=== PATIENT | male | born 1965 | race Caucasian/White ===

== ENCOUNTER 2020-05-21 20:48 | Inpatient (IN) ==
[2020-05-21] MEDS ORDERED: PROVENTIL NEB TX 0.083% 2.5MG/ 3ML NEB ONE (21:03)
[2020-05-21] MEDS ORDERED: DECADRON INJ PRESERVATIVE-FREE IVP ONE (21:03)
[2020-05-21] MEDS ORDERED: ZITHROMAX INJ 500 MG VIAL 500 MG in NS 250 ML IV 250 ML IV SCH (21:04)
[2020-05-21] MEDS ORDERED: PROVENTIL NEB TX 0.083% 2.5MG/ 3ML ONE (21:11)
[2020-05-21] MEDS ORDERED: DECADRON INJ ONE (21:19)
[2020-05-21] MEDS ORDERED: ZITHROMAX INJ 500 MG VIAL IV ONE (21:20)
[2020-05-21] MEDS ORDERED: NS 250 ML IV 250 ML IV ONE (21:20)
--- NOTE | 2020-05-21 21:29 | DR.SOBA ---
HPI Time Seen Time Seen by Provider: 05/21/20 21:02 Primary Care Physician Primary Care Physician: TOMASA HPI Comment HPI Comment: Patient presents with the complaint of sob. Recently dx with COVID 19 infection. notes that his O2 saturation decreases when he exerts himself. SOB is also worse with exertion. Complaints Chief Complaint:: PT STATES THAT HE STARTED GETTING SICK ON SATURDAY THE AND TESTED POSITIVE ON SATURDAY THE FOR COVID. STATES THAT HE IS JUST GETTING WORSE. STATES THAT AT HOME HIS O2 IS STAYING 88-90% AND WHEN HE TRIES TO WALK OR DO ANYTHING IT DROPS. ALSO HAS SOB ON EXERTION, SLIGHT COUGH, SLIGHT TEMP, GENERALIZED BODY ACHES, AND LOW BLOOD PRESSURE THAT IS CAUSING DIZZINESS AND WEAKNESS. COVID-19 Coronavirus risk:travel/contact w/high risk person: Yes Coronavirus symptoms experienced: Fever, Coughing and Shortness of Breath Source History Provided: Patient Mode of Arrival Mode of Arrival: Ambulatory Timing Onset of Chief Complaint: 05/14/20 PMH PMH Past Medical History: Yes Past Medical History: Diabetes, Hypertension and Renal Disease Past Surgical History: No Surgical History: No History Family History History of Family Medical Conditions: Yes Family Medical History: Hypertension Social History Does patient currently use any type of tobacco product: No Have you used tobacco products in the last 12 months: No Type of Tobacco Use: None Does any household member use tobacco: No Alcohol Use: None Do you use any recreational Drugs:: No Lives With: Spouse Lives Where: Home Travel Risk Coronavirus risk:travel/contact w/high risk person: Yes Coronavirus symptoms experienced: Fever, Coughing and Shortness of Breath Infectious screening In the last 2 months have you had wt loss of >10#?: NO Have you had fever, night sweats or hemotysis?: No Have you traveled outside the country in the last 6 months?: No Isolation: Droplet ROS Review of Systems Constitutional: See HPI Respiratoy: Dry Cough, Short of Breath and Wheezing Cardiovascular: Chest Pain All Other Systems: Reviewed and Negative PE Vital Signs Vitals: Temperature 99.6 F Pulse Rate 81 Respiratory Rate 24 Blood Pressure 74/43 O2 Sat by Pulse Oximetry 91 General Limitations: No Limitations Head Head Exam: Normal Inspection, Atraumatic and Normocephalic ENT ENT Exam: Normal Exam and Normal Oropharynx Neck Neck Exam: Normal Inspection and Full ROM Chest Chest Inspection: Normal Inspection and Symmetric Chest Wall Rise Respiratory Respiratory Exam: Bilateral: Wheezing and Bilateral: Rhonchi Cardiovascular Cardiovascular Exam: Regular Rate, Normal Rhythm and Normal Heart Sounds Abdominal Exam Abdominal Exam: Normal Inspection, Normal Bowel Sounds and Soft Extremities Extremities Exam: Normal Inspection Neurologic Neurological Exam: Alert and Oriented X3 Psychiatric Psychiatric Exam: Normal Affect and Normal Mood COURSE Treatment Treatment: Spoke with Dr. Greenwood who has agreed that the patient needs admission. ROR Labs Reviewed Result Diagrams: 05/21/20 21:16 05/21/20 21:16 Laboratory: WBC 5.8 X10^3/uL (3.6-10.0) 05/21/20 21:16 RBC 4.72 X10^6/uL (4.7-6.0) 05/21/20 21:16 Hgb 14.0 g/dL (13.5-18.0) 05/21/20 21:16 Hct 40.1 % (42.0-54.0) L 05/21/20 21:16 MCV 84.9 fL (80.0-100.0) 05/21/20 21:16 MCH 29.6 pg (27.0-34.0) 05/21/20 21:16 MCHC 34.8 g/dL (33.0-35.0) 05/21/20 21:16 RDW 13.9 % (11.6-16.5) 05/21/20 21:16 Plt Count 98 X10^3/uL (150.0-450.0) L 05/21/20 21:16 MPV 9.7 fL (7.4-11.0) 05/21/20 21:16 Neut % (Auto) 76.1 % (42.0-75.0) H 05/21/20 21:16 Lymph % (Auto) 15.6 % (21.0-51.0) L 05/21/20 21:16 [place] % (Auto) 8.1 % (0.0-13.0) 05/21/20 21:16 Eos % (Auto) 0.0 % (0.9-2.9) L 05/21/20 21:16 Baso % (Auto) 0.2 % (0.2-1.0) 05/21/20 21:16 Neut # (Auto) 4.4 x10^3/uL (2.2-4.8) 05/21/20 21:16 Lymph # (Auto) 0.9 X10^3/uL (1.3-2.9) L 05/21/20 21:16 [place] # (Auto) 0.5 x10^3/uL (0.3-0.8) 05/21/20 21:16 Eos # (Auto) 0.0 x10^3/uL (0.0-0.2) 05/21/20 21:16 Baso # (Auto) 0.0 X10^3/uL (0.0-0.1) 05/21/20 21:16 Absolute Nucleated RBC 0.1 /100WBC 05/21/20 21:16 D-Dimer 1.01 ug/ml (0.0-0.57) H* 05/21/20 21:16 Sodium 132 mmol/L (136-145) L 05/21/20 21:16 Corrected Sodium 136 mmol/L (136-145) 05/21/20 21:16 Potassium 3.5 mmol/L (3.5-5.1) 05/21/20 21:16 Chloride 98 mmol/L (98-107) 05/21/20 21:16 Carbon Dioxide 22.3 mmol/L (21-32) 05/21/20 21:16 BUN 71 mg/dL (7-18) H 05/21/20 21:16 Creatinine 3.18 mg/dL (0.70-1.30) H 05/21/20 21:16 Est GFR (MDRD) Af Amer 26 (>60) L 05/21/20 21:16 Est GFR (MDRD) Non-Af 22 (>60) L 05/21/20 21:16 Glucose 251 mg/dL (65-99) H 05/21/20 21:16 Lactic Acid 1.0 mmol/L (0.4-2.0) 05/21/20 21:16 Calcium 8.2 mg/dL (8.5-10.1) L 05/21/20 21:16 Corrected Calcium 9.1 mg/dL (8.5-10.1) 05/21/20 21:16 Ferritin 1593 ng/mL (26-388) H 05/21/20 21:16 Total Bilirubin 0.70 mg/dL (0.2-1.0) 05/21/20 21:16 AST 97 Units/L (15-37) H 05/21/20 21:16 ALT 64 Units/L (12-78) 05/21/20 21:16 Alkaline Phosphatase 59 Units/L (46-116) 05/21/20 21:16 Troponin I 0.06 ng/mL (0-1.5) 05/21/20 21:16 C-Reactive Protein 164.30 mg/L (0-3.0) H 05/21/20 21:16 Total Protein 6.3 g/dL (6.4-8.2) L 05/21/20 21:16 Albumin 2.9 g/dL (3.4-5.0) L 05/21/20 21:16 Globulin 3.4 g/dL (2.5-4.5) 05/21/20 21:16 Albumin/Globulin Ratio 0.9 Ratio (1.1-2.1) L 05/21/20 21:16 Other Results Comments: STUDY: CHEST, 1 VIEW COMPARISON: None HISTORY: PT STATES THAT HE STARTED GETTING SICK ON SATURDAY THE AND TESTED POSITIVE ON SATURDAY THE FOR COVID. STATES THAT HE IS JUST GETTING WORSE. STATES THAT AT HOME HIS O2 IS STAYING 88-90% AND WHEN HE TRIES TO WALK OR DO ANYTHING IT TRUNCATED ... FINDINGS: Left lower lobe consolidation is seen with air bronchograms. There is discoid atelectasis of the right lower lobe. Questionable scattered areas of rounded like airspace disease is seen in the right mid and right upper lung zone. No pleural effusion or gross pneumothorax is seen. Heart size is magnified on this portable technique with elevation of the right hemidiaphragm. IMPRESSION: Left lower lobe consolidation is seen. Given the patient's history of being positive for COVID-19, this is worrisome for infectious process. Electronically signed by: Neymar Ford (May 21, 2020 22:33:10) Opioid Opioid Risk Tool Age (Breezy box if 16-45): No History of Preadolescent Sexual Abuse: No Total: 0 Total Score Risk Category: Low Risk Copyright: [employer]varez predicting aberrant behaviors
[2020-05-21] MEDS ORDERED: NS 1000 ML 1,000 ML ONE ×3 (21:35→23:57)
[2020-05-21] MEDS ORDERED: NS 1000 ML 1,000 ML IV ONE ×2 (21:37→23:00)
[2020-05-21 21:48] LABS: BASOPHILS % (AUTO) 0.2 % (0.2-1.0); HEMATOCRIT 40.1 % (42.0-54.0); LYMPHOCYTES # (AUTO) 0.9 X10^3/uL (1.3-2.9); LYMPHOCYTES % (AUTO) 15.6 % (21.0-51.0); MEAN CORPUSCULAR HEMOGLOBIN 29.6 pg (27.0-34.0); MEAN CORPUSCULAR HGB CONC 34.8 g/dL (33.0-35.0); MEAN CORPUSCULAR VOLUME 84.9 fL (80.0-100.0); MEAN PLATELET VOLUME 9.7 fL (7.4-11.0); MONOCYTES # (AUTO) 0.5 x10^3/uL (0.3-0.8); MONOCYTES % (AUTO) 8.1 % (0.0-13.0); NEUTROPHILS # (AUTO) 4.4 x10^3/uL (2.2-4.8); NEUTROPHILS % (AUTO) 76.1 % (42.0-75.0); PLATELET COUNT 98 X10^3/uL (150.0-450.0); RED BLOOD COUNT 4.72 X10^6/uL (4.7-6.0); RED CELL DISTRIBUTION WIDTH 13.9 % (11.6-16.5); WHITE BLOOD COUNT 5.8 X10^3/uL (3.6-10.0)
[2020-05-21 21:58] LABS: ALBUMIN 2.9 g/dL (3.4-5.0); CALCIUM 8.2 mg/dL (8.5-10.1); CARBON DIOXIDE 22.3 mmol/L (21-32); COR CA(FOR HYPOALB) 9.1 mg/dL (8.5-10.1); CREATININE 3.18 mg/dL (0.70-1.30); TOTAL PROTEIN 6.3 g/dL (6.4-8.2)
--- NOTE | 2020-05-21 22:34 | RAD ---
STUDY: CHEST, 1 VIEWCOMPARISON: NoneHISTORY: PT STATES THAT HE STARTED GETTING SICK ON SATURDAY THE AND TESTED POSITIVE ON SATURDAY THE FOR COVID. STATES THAT HE IS JUST GETTING WORSE. STATES THAT AT HOME HIS O2 IS STAYING 88-90% AND WHEN HE TRIES TO WALK OR DO ANYTHING IT TRUNCATED ...FINDINGS:Left lower lobe consolidation is seen with air bronchograms. There is discoid atelectasis of the right lower lobe. Questionable scattered areas of rounded like airspace disease is seen in the right mid and right upper lung zone. No pleural effusion or gross pneumothorax is seen. Heart size is magnified on this portable technique with elevation of the right hemidiaphragm.IMPRESSION:Left lower lobe consolidation is seen. Given the patient's history of being positive for COVID-19, this is worrisome for infectious process.Electronically signed by: Neymar Ford (May 21, 2020 22:33:10)
[2020-05-21] MEDS ORDERED: D5W 250 ML IV 250 ML IV ONE (22:39)
[2020-05-21] MEDS ORDERED: LEVOPHED INJ ONE (22:39)
[2020-05-21] MEDS: LEVOPHED INJ 8 MG in D5W 250 ML IV 242 ML IV PRN (23:01)
[2020-05-21] MEDS ORDERED: VANCOMYCIN IV *PREMIX 1 G/200 ML BAG 1 G/200 ML PIGGYBACK IV SCH (23:11)
[2020-05-21] MEDS ORDERED: ZITHROMAX INJ 500 MG VIAL 500 MG in D5W 250 ML IV 250 ML IV SCH (23:12)
[2020-05-21 23:43] LABS: ABG HCO3 18.8 mmol/L (22-26)
[2020-05-21 23:44] LABS: ABG ALLEN TEST POS
[2020-05-21] MEDS: NS 1000 ML 1,000 ML IV SCH (23:57)
[2020-05-22] MEDS ORDERED: VANCOMYCIN HCL ONE (00:15)
[2020-05-22] MEDS ORDERED: NS 250 ML IV 250 ML IV ONE (00:15)
[2020-05-22 01:44] VITALS: BMI 40.5
[2020-05-22 05:23] LABS: BASOPHILS % (AUTO) 0.3 % (0.2-1.0); EOSINOPHILS % (AUTO) 0.1 % (0.9-2.9); HEMATOCRIT 42.1 % (42.0-54.0); HEMOGLOBIN 14.7 g/dL (13.5-18.0); LYMPHOCYTES # (AUTO) 0.9 X10^3/uL (1.3-2.9); LYMPHOCYTES % (AUTO) 13.5 % (21.0-51.0); MEAN CORPUSCULAR HEMOGLOBIN 29.7 pg (27.0-34.0); MEAN CORPUSCULAR HGB CONC 34.8 g/dL (33.0-35.0); MEAN CORPUSCULAR VOLUME 85.3 fL (80.0-100.0); MEAN PLATELET VOLUME 9.4 fL (7.4-11.0); MONOCYTES # (AUTO) 0.1 x10^3/uL (0.3-0.8); MONOCYTES % (AUTO) 2.1 % (0.0-13.0); NEUTROPHILS # (AUTO) 5.3 x10^3/uL (2.2-4.8); PLATELET COUNT 105 X10^3/uL (150.0-450.0); RED BLOOD COUNT 4.94 X10^6/uL (4.7-6.0); RED CELL DISTRIBUTION WIDTH 14.2 % (11.6-16.5); WHITE BLOOD COUNT 6.4 X10^3/uL (3.6-10.0)
[2020-05-22 05:34] LABS: ALBUMIN 2.8 g/dL (3.4-5.0); CALCIUM 7.9 mg/dL (8.5-10.1); CARBON DIOXIDE 17.8 mmol/L (21-32); COR CA(FOR HYPOALB) 8.9 mg/dL (8.5-10.1); CREATININE 2.86 mg/dL (0.70-1.30); TOTAL PROTEIN 6.3 g/dL (6.4-8.2)
[2020-05-22] MEDS ORDERED: DUONEB 0.5 MG/3 MG (3 mL) NEB ONE (07:44)
[2020-05-22] MEDS ORDERED: PULMICORT NEB TX 0.5 MG NEB ONE (07:45)
[2020-05-22] MEDS: DUONEB 0.5 MG/3 MG (3 mL) NEB SCH ×4 (08:25→21:35)
[2020-05-22] MEDS: PULMICORT NEB TX 0.5 MG NEB SCH ×2 (08:25→21:35)
[2020-05-22] MEDS: NS 1000 ML 1,000 ML IV SCH ×2 (08:46→17:56)
[2020-05-22] MEDS: LEVOPHED INJ 8 MG in D5W 250 ML IV 242 ML IV PRN ×2 (08:49→17:07)
[2020-05-22] MEDS ORDERED: REMDESIVIR (INVESTIGATIONAL DRUG GS-5734) 200 MG in NS 250 ML IV 250 ML IV SCH (08:58)
[2020-05-22] MEDS ORDERED: DECADRON TAB PO SCH (09:00)
[2020-05-22] MEDS ORDERED: VITAMIN C PO SCH (09:00)
[2020-05-22] MEDS: ZOSYN VIAL 3.375 GRAMS 3.375 G in NS 100 ML IV + SPIKE MINIBAG* 100 ML IV SCH ×3 (09:38→22:40)
[2020-05-22] MEDS: ZINC SULFATE PO SCH (09:40)
[2020-05-22] MEDS: VITAMIN D (1.25MG) PO SCH (09:41)
[2020-05-22] MEDS: ASCORBIC ACID INJ MULTI-DOSE VIAL 1,500 MG in NS 100 ML IV 100 ML IV SCH ×3 (09:41→20:45)
[2020-05-22] MEDS: VITAMIN A PO SCH (09:43)
[2020-05-22] MEDS: SOLU-Cortef INJ IVP SCH ×2 (09:47→20:45)
[2020-05-22] MEDS ORDERED: HEPARIN SODIUM INJ 5000 UNITS IVP ONE (10:25)
--- NOTE | 2020-05-22 11:18 | DR.H&P ---
H&P History & Physical for Day of: H&P Date: 05/22/20 Chief Complaint Chief Complaint: worsening SOB Allergies Allergies Allergy/AdvReac Type Severity Reaction Status Date / Time No Known Drug Allergies Allergy Verified 05/21/20 21:13 History of Present Illness History of Present Illness: Mr. Cotto is a 54y/o male with a PMH of HTN, CHF, DM and obesity presented with worsening SOB. He has been having cough, SOB, fever and chills for the past week. He was tested on Saturday05/16/20 for COVID and had a positive result. He states his SOB has been worsening over the week and has been having fever, Tmax 101. He denies N/V/D or abdominal pain. Denies chest pain. He does not use O2 at home. He is currently on h-flow oxygen and reports feeling a lot better. He reports hx of CHF, has - CXR concerning for LLL pneumonia - Patient was noted to be hypotensive, received 2L bolus with minimal improvement in BP so as started on Levophed drip, currently at 20 mcg. - Labs: WBC: 6.4 Plt: 105 BUN/Cr: 70/2.86 ( improved from 3.18). D-dimer: 1.01 - CRP: 164 Trop 0.06 AB.35/34/52/18 with sats 84% He received a dose of decadron and azithromycin. Plan: add Zosyn, continue Azithromax, add hydrocortisone 50 mg BID for hypotension, wean Levophed to keep MAP > 65. Start Remdesivir. Due to elevated d-dimer and unable to do CT due to ELIANE, will start heparin drip as per PE protocol. Discussed with patient, denies hx of bleeding. Will decrease IVF to 100cc/hr due to hx of CHF and unknown EF along with crackles heard on exam. ECHO ordered for tomorrow. Monitor AM labs, trend one more troponin. Repeat CXR in the morning. Wean O2 as tolerated. Discussed patient's treatment plan with patient and at bedside. Patient's nurse also updated on the changes. Patient remains in a critical state due to hemodynamic instability. Critical care time spent 30-74 mins in clinical assessment, reviewing labs and imaging and decision making. Past Medical History Past Medical History: Diabetes, Hypertension and Renal Disease Additional Medical History: CHF Obesity Past Surgical History Surgical History: No History Family History Family Medical History: Diabetes Mellitus, Cancer and Hypertension Social History Does patient currently use any type of tobacco product: No Have you used tobacco products in the last 12 months: No Type of Tobacco Use: None Does any household member use tobacco: No Alcohol Use: None Drug Use: None Prescription drug monitoring program results: PDMP reviewed and no concerns identified Medications Home Medications: No Known Drug Allergies Allergy (Verified 05/21/20 21:13) CONTINUE taking the following medications carvedilol 25 mg PO BID 05/21/20 [History] dapagliflozin [Farxiga] 10 mg PO QAM 05/21/20 [History] ergocalciferol (vitamin D2) [Vitamin D2] 1,250 mcg PO QWEEK 05/21/20 [History] hydrochlorothiazide 25 mg PO QAM 05/21/20 [History] lisinopril 20 mg PO DAILY 05/21/20 [History] minoxidil 2.5 mg PO BID 05/21/20 [History] bajapovj-fjd-NP-lycopen-lutein [Centrum Silver Men] 1 tab PO DAILY 05/21/20 [History] Labs Result Diagrams: 05/22/20 04:30 05/22/20 04:30 Labs: Laboratory WBC 6.4 X10^3/uL (3.6-10.0) 05/22/20 04:30 RBC 4.94 X10^6/uL (4.7-6.0) 05/22/20 04:30 Hgb 14.7 g/dL (13.5-18.0) 05/22/20 04:30 Hct 42.1 % (42.0-54.0) 05/22/20 04:30 MCV 85.3 fL (80.0-100.0) 05/22/20 04:30 MCH 29.7 pg (27.0-34.0) 05/22/20 04:30 MCHC 34.8 g/dL (33.0-35.0) 05/22/20 04:30 RDW 14.2 % (11.6-16.5) 05/22/20 04:30 Plt Count 105 X10^3/uL (150.0-450.0) L 05/22/20 04:30 MPV 9.4 fL (7.4-11.0) 05/22/20 04:30 Neut % (Auto) 84.0 % (42.0-75.0) H 05/22/20 04:30 Lymph % (Auto) 13.5 % (21.0-51.0) L 05/22/20 04:30 [place] % (Auto) 2.1 % (0.0-13.0) 05/22/20 04:30 Eos % (Auto) 0.1 % (0.9-2.9) L 05/22/20 04:30 Baso % (Auto) 0.3 % (0.2-1.0) 05/22/20 04:30 Neut # (Auto) 5.3 x10^3/uL (2.2-4.8) H 05/22/20 04:30 Lymph # (Auto) 0.9 X10^3/uL (1.3-2.9) L 05/22/20 04:30 [place] # (Auto) 0.1 x10^3/uL (0.3-0.8) L 05/22/20 04:30 Eos # (Auto) 0.0 x10^3/uL (0.0-0.2) 05/22/20 04:30 Baso # (Auto) 0.0 X10^3/uL (0.0-0.1) 05/22/20 04:30 Absolute Nucleated RBC 0.1 /100WBC 05/22/20 04:30 PT 13.9 SECONDS (11.8-14.3) 05/22/20 10:30 INR Target Range - 05/22/20 10:30 INR 1.11 (0.8-1.3) 05/22/20 10:30 APTT 41.3 SECONDS (22.9-36.5) H 05/22/20 10:30 PTT Comment - 05/22/20 10:30 D-Dimer 1.01 ug/ml (0.0-0.57) H* 05/21/20 21:16 Sample Site Rr 05/21/20 22:59 ABG pH 7.350 (7.35-7.45) 05/21/20 22:59 ABG pCO2 34.0 mmHg (35.0-45.0) L 05/21/20 22:59 ABG pO2 52.0 mmHg (80.0-100.0) L 05/21/20 22:59 ABG HCO3 18.8 mmol/L (22-26) L 05/21/20 22:59 ABG O2 Saturation 84.0 % (90-100) L* 05/21/20 22:59 ABG Base Excess -6.0 mmol/L (-2.0-2.0) L 05/21/20 22:59 Venancio Test Pos 05/21/20 22:59 A-a Gradient 55.0 mmHg 05/21/20 22:59 FiO2 21.0 05/21/20 22:59 Blood Gas Comments Darin well sw 05/21/20 22:59 Sodium 133 mmol/L (136-145) L 05/22/20 04:30 Corrected Sodium 139 mmol/L (136-145) 05/22/20 04:30 Potassium 3.9 mmol/L (3.5-5.1) 05/22/20 04:30 Chloride 100 mmol/L (98-107) 05/22/20 04:30 Carbon Dioxide 17.8 mmol/L (21-32) L 05/22/20 04:30 BUN 70 mg/dL (7-18) H 05/22/20 04:30 Creatinine 2.86 mg/dL (0.70-1.30) H 05/22/20 04:30 Est GFR (MDRD) Af Amer 30 (>60) L 05/22/20 04:30 Est GFR (MDRD) Non-Af 25 (>60) L 05/22/20 04:30 Glucose 355 mg/dL (65-99) H 05/22/20 04:30 Lactic Acid 1.0 mmol/L (0.4-2.0) 05/21/20 21:16 Calcium 7.9 mg/dL (8.5-10.1) L 05/22/20 04:30 Corrected Calcium 8.9 mg/dL (8.5-10.1) 05/22/20 04:30 Ferritin 1593 ng/mL (26-388) H 05/21/20 21:16 Total Bilirubin 0.90 mg/dL (0.2-1.0) 05/22/20 04:30 AST 97 Units/L (15-37) H 05/22/20 04:30 ALT 65 Units/L (12-78) 05/22/20 04:30 Alkaline Phosphatase 61 Units/L (46-116) 05/22/20 04:30 Troponin I 0.06 ng/mL (0-1.5) 05/21/20 21:16 C-Reactive Protein 164.30 mg/L (0-3.0) H 05/21/20 21:16 Total Protein 6.3 g/dL (6.4-8.2) L 05/22/20 04:30 Albumin 2.8 g/dL (3.4-5.0) L 05/22/20 04:30 Globulin 3.5 g/dL (2.5-4.5) 05/22/20 04:30 Albumin/Globulin Ratio 0.8 Ratio (1.1-2.1) L 05/22/20 04:30 Review of Systems Constitutional: Fever, Weakness and Malaise Eyes: Vision Change ENT: Nose Congestion Respiratory: Cough, Shortness of Breath and SOB with Excertion Cardiovascular: No Symptoms Reported Gastrointestinal: Vomiting, Abdominal Pain and Diarrhea Genitourinary: No Symptoms Reported Musculoskeletal: No Symptoms Reported Skin: No Symptoms Reported Neurological: No Symptoms Reported Physical Exam Vital Signs: Temperature 97.5 F Pulse Rate [Left] 69 Pulse Rate 75 Respiratory Rate 32 Blood Pressure [Left Arm] 81/47 Blood Pressure 102/72 O2 Sat by Pulse Oximetry 92 Oriented: Normal Eyes: Normal Ear: Normal Throat: Normal Respiratory: Diminished Throughout, RLL Rales and LLL Rales Cardiovascular: Normal and Edema (slight LE edema b/l ) Auscultation: Bowel Sounds: Normal Palpation: Normal Tenderness: Normal Skin: Normal Musculoskeletal: Normal Mood Description: Calm Affect: Normal Speech Pattern: Clear and Appropriate Assessment/Plan (1) Acute respiratory failure due to COVID-19: Status: Acute (2) Left lower lobe pneumonia: Status: Acute (3) Shock due to systemic infection: Status: Acute (4) Acute renal failure: Status: Acute (5) Elevated d-dimer: Status: Acute (6) Thrombocytopenia: Status: Acute (7) CHF (congestive heart failure): Status: Acute (8) Diabetes: Status: Acute Review H&P Reviewed: Yes Patient was examined?: Yes
[2020-05-22] MEDS: HEPARIN SODIUM IN D5W 25,000 UNITS/500 ML BAG IV PRN ×2 (11:19→18:30)
[2020-05-22] MEDS: HumuLIN R SC PRN ×4 (11:43→23:25)
[2020-05-22] MEDS: ZITHROMAX TAB 250 MG PO SCH (11:44)
[2020-05-22] MEDS ORDERED: TYLENOL 325 MG TAB PO PRN (19:45)
[2020-05-22] MEDS ORDERED: ZITHROMAX INJ 500 MG VIAL 500 MG in D5W 250 ML IV 250 ML IV SCH (21:00)
[2020-05-23] MEDS: NS 1000 ML 1,000 ML IV SCH ×5 (00:15→22:14)
[2020-05-23] MEDS: ASCORBIC ACID INJ MULTI-DOSE VIAL 1,500 MG in NS 100 ML IV 100 ML IV SCH ×4 (03:57→20:40)
--- NOTE | 2020-05-23 04:35 | RAD ---
STUDY: CHEST, 1 VIEWCOMPARISON: NoneHISTORY: COVID19, SOBFINDINGS:Persistent elevation the right hemidiaphragm is seen with airspace disease in the right lower and left lower lung zone. Heart size is magnified on this portable technique but stable from prior exam. No pleural effusion or pneumothorax is seen.IMPRESSION:No significant change from prior studyElectronically signed by: Neymar Ford (May 23, 2020 04:34:37)
[2020-05-23 04:54] LABS: BASOPHILS % (AUTO) 0.4 % (0.2-1.0); HEMATOCRIT 43.1 % (42.0-54.0); HEMOGLOBIN 14.7 g/dL (13.5-18.0); LYMPHOCYTES # (AUTO) 0.6 X10^3/uL (1.3-2.9); LYMPHOCYTES % (AUTO) 5.9 % (21.0-51.0); MEAN CORPUSCULAR HEMOGLOBIN 29.5 pg (27.0-34.0); MEAN CORPUSCULAR HGB CONC 34.1 g/dL (33.0-35.0); MEAN CORPUSCULAR VOLUME 86.6 fL (80.0-100.0); MEAN PLATELET VOLUME 9.2 fL (7.4-11.0); MONOCYTES # (AUTO) 0.7 x10^3/uL (0.3-0.8); MONOCYTES % (AUTO) 6.8 % (0.0-13.0); NEUTROPHILS # (AUTO) 8.8 x10^3/uL (2.2-4.8); NEUTROPHILS % (AUTO) 86.9 % (42.0-75.0); PLATELET COUNT 142 X10^3/uL (150.0-450.0); RED BLOOD COUNT 4.98 X10^6/uL (4.7-6.0); RED CELL DISTRIBUTION WIDTH 14.1 % (11.6-16.5); WHITE BLOOD COUNT 10.1 X10^3/uL (3.6-10.0)
[2020-05-23 04:57] LABS: CALCIUM 7.7 mg/dL (8.5-10.1); CARBON DIOXIDE 18.4 mmol/L (21-32); CREATININE 2.57 mg/dL (0.70-1.30)
[2020-05-23] MEDS: ZOSYN VIAL 3.375 GRAMS 3.375 G in NS 100 ML IV + SPIKE MINIBAG* 100 ML IV SCH ×3 (05:55→23:00)
[2020-05-23] MEDS: HumuLIN R SC PRN ×4 (06:20→20:40)
[2020-05-23] MEDS: HEPARIN SODIUM IN D5W 25,000 UNITS/500 ML BAG IV PRN (06:21)
[2020-05-23] MEDS: VITAMIN A PO SCH (08:39)
[2020-05-23] MEDS: ZITHROMAX TAB 250 MG PO SCH (08:40)
[2020-05-23] MEDS: ZINC SULFATE PO SCH (08:40)
[2020-05-23] MEDS: VITAMIN D (1.25MG) PO SCH (08:40)
[2020-05-23] MEDS: REMDESIVIR (INVESTIGATIONAL DRUG GS-5734) 100 MG in NS 250 ML IV 250 ML IV SCH (08:42)
[2020-05-23] MEDS ORDERED: LANTUS SC SCH (09:00)
[2020-05-23] MEDS ORDERED: SOLU-Medrol 40 MG VIAL IVP SCH (09:00)
[2020-05-23] MEDS: PULMICORT NEB TX 0.5 MG NEB SCH ×2 (09:10→21:50)
[2020-05-23] MEDS: DUONEB 0.5 MG/3 MG (3 mL) NEB SCH ×4 (09:10→21:50)
--- NOTE | 2020-05-23 09:22 | PCM.PROG ---
Progress Note Progress Note for Day of Date of Exam: 05/23/20 Subjective Subjective: Patient seen at bedside, patient FSBG was elevated during the night requiring multiple doses of regular insulin. He states he feels a lot better. He reports improvement in his breathing. He is currently on HHF @ 68%. He has been afebrile, tolerating diet. His BP is better, currently on Levophed 8mcg. Labs: WBC-10.1 Plt: 142 K: 3.5 BUN/Cr: 67/2.57 ( baseline around 1.5-1.6). CXR: similar to prev one, no significant change Plan: echo pending, add Lantus 15 units QAM, patient reports taking Tresiba at home 40 units qHS and Ozempic. Continue hydration with IVF, continue IV abx, Remdesivir and steroids. Continue to wean down Levophed, keep MAP > 65. Follow cultures and AM labs. Check A1C. Wean O2 to keep sats > 92%. Past Medical Family Social History Past Med/Fam/Surg Hx: No changes since H&P Allergies: Allergies No Known Drug Allergies Allergy (Verified 05/21/20 21:13) Review of Systems ROS: No change since H&P Vital Signs and I&O's Vital Signs: Temperature 99.5 F Pulse Rate [Left] 69 Pulse Rate 73 Respiratory Rate 9 Blood Pressure [Left Arm] 81/47 Blood Pressure 105/59 O2 Sat by Pulse Oximetry 92 Intake and Output: Intake & Output 05/20/20 05/21/20 05/22/20 05/23/20 23:59 23:59 23:59 23:59 Intake Total 9.7 / 9.7 4815 / 4815 1518 / 1518 Output Total 4050 / 4050 850 / 850 Balance 9.7 / 9.7 765 / 765 668 / 668 Physical Exam Oriented: Normal Eyes: Normal Ear: Normal Throat: Normal Respiratory: Generalized and Diminished Cardiovascular: Normal and Edema (slight LE edema b/l ) Auscultation: Bowel Sounds: Normal Tenderness: Normal Skin: Normal Musculoskeletal: Normal Mood Description: Calm Affect: Normal Speech Pattern: Clear and Appropriate Laboratory and Diagnostics Result Diagrams: 05/23/20 04:30 05/23/20 04:30 Labs: Laboratory WBC 10.1 X10^3/uL (3.6-10.0) H 05/23/20 04:30 RBC 4.98 X10^6/uL (4.7-6.0) 05/23/20 04:30 Hgb 14.7 g/dL (13.5-18.0) 05/23/20 04:30 Hct 43.1 % (42.0-54.0) 05/23/20 04:30 MCV 86.6 fL (80.0-100.0) 05/23/20 04:30 MCH 29.5 pg (27.0-34.0) 05/23/20 04:30 MCHC 34.1 g/dL (33.0-35.0) 05/23/20 04:30 RDW 14.1 % (11.6-16.5) 05/23/20 04:30 Plt Count 142 X10^3/uL (150.0-450.0) L 05/23/20 04:30 MPV 9.2 fL (7.4-11.0) 05/23/20 04:30 Neut % (Auto) 86.9 % (42.0-75.0) H 05/23/20 04:30 Lymph % (Auto) 5.9 % (21.0-51.0) L 05/23/20 04:30 [place] % (Auto) 6.8 % (0.0-13.0) 05/23/20 04:30 Eos % (Auto) 0.0 % (0.9-2.9) L 05/23/20 04:30 Baso % (Auto) 0.4 % (0.2-1.0) 05/23/20 04:30 Neut # (Auto) 8.8 x10^3/uL (2.2-4.8) H 05/23/20 04:30 Lymph # (Auto) 0.6 X10^3/uL (1.3-2.9) L 05/23/20 04:30 [place] # (Auto) 0.7 x10^3/uL (0.3-0.8) 05/23/20 04:30 Eos # (Auto) 0.0 x10^3/uL (0.0-0.2) 05/23/20 04:30 Baso # (Auto) 0.0 X10^3/uL (0.0-0.1) 05/23/20 04:30 Absolute Nucleated RBC 0.1 /100WBC 05/23/20 04:30 PT 13.9 SECONDS (11.8-14.3) 05/22/20 10:30 INR Target Range - 05/22/20 10:30 INR 1.11 (0.8-1.3) 05/22/20 10:30 APTT 89.0 SECONDS (22.9-36.5) H 05/23/20 04:30 PTT Comment - 05/23/20 04:30 D-Dimer 1.01 ug/ml (0.0-0.57) H* 05/21/20 21:16 Sample Site Rr 05/21/20 22:59 ABG pH 7.350 (7.35-7.45) 05/21/20 22:59 ABG pCO2 34.0 mmHg (35.0-45.0) L 05/21/20 22:59 ABG pO2 52.0 mmHg (80.0-100.0) L 05/21/20 22:59 ABG HCO3 18.8 mmol/L (22-26) L 05/21/20 22:59 ABG O2 Saturation 84.0 % (90-100) L* 05/21/20 22:59 ABG Base Excess -6.0 mmol/L (-2.0-2.0) L 05/21/20 22:59 Venancio Test Pos 05/21/20 22:59 A-a Gradient 55.0 mmHg 05/21/20 22:59 FiO2 21.0 05/21/20 22:59 Blood Gas Comments Darin well sw 05/21/20 22:59 Sodium 137 mmol/L (136-145) 05/23/20 04:30 Corrected Sodium 144 mmol/L (136-145) 05/23/20 04:30 Potassium 3.5 mmol/L (3.5-5.1) 05/23/20 04:30 Chloride 104 mmol/L (98-107) 05/23/20 04:30 Carbon Dioxide 18.4 mmol/L (21-32) L 05/23/20 04:30 BUN 67 mg/dL (7-18) H 05/23/20 04:30 Creatinine 2.57 mg/dL (0.70-1.30) H 05/23/20 04:30 Est GFR (MDRD) Af Amer 34 (>60) L 05/23/20 04:30 Est GFR (MDRD) Non-Af 28 (>60) L 05/23/20 04:30 Glucose 384 mg/dL (65-99) H 05/23/20 04:30 POC Glucose (mg/dL) 332 mg/dL (65-99) H 05/23/20 05:42 Hemoglobin A1c 8.5 % 05/23/20 04:30 Lactic Acid 1.0 mmol/L (0.4-2.0) 05/21/20 21:16 Calcium 7.7 mg/dL (8.5-10.1) L 05/23/20 04:30 Corrected Calcium 8.9 mg/dL (8.5-10.1) 05/22/20 04:30 Ferritin 1593 ng/mL (26-388) H 05/21/20 21:16 Total Bilirubin 0.90 mg/dL (0.2-1.0) 05/22/20 04:30 AST 97 Units/L (15-37) H 05/22/20 04:30 ALT 65 Units/L (12-78) 05/22/20 04:30 Alkaline Phosphatase 61 Units/L (46-116) 05/22/20 04:30 Troponin I 0.04 ng/mL (0-1.5) 05/22/20 04:30 C-Reactive Protein 110.20 mg/L (0-3.0) H 05/23/20 04:30 B-Natriuretic Peptide 85.9 pg/mL (0-79) H 05/22/20 04:30 Total Protein 6.3 g/dL (6.4-8.2) L 05/22/20 04:30 Albumin 2.8 g/dL (3.4-5.0) L 05/22/20 04:30 Globulin 3.5 g/dL (2.5-4.5) 05/22/20 04:30 Albumin/Globulin Ratio 0.8 Ratio (1.1-2.1) L 05/22/20 04:30 Plan (1) Acute respiratory failure due to COVID-19: Status: Acute (2) Left lower lobe pneumonia: Status: Acute (3) Shock due to systemic infection: Status: Acute (4) Elevated d-dimer: Status: Acute (5) Acute on chronic renal failure: Status: Acute (6) Thrombocytopenia: Status: Acute (7) CHF (congestive heart failure): Status: Acute (8) Diabetes: Status: Acute
[2020-05-23] MEDS: LEVOPHED INJ 8 MG in D5W 250 ML IV 242 ML IV PRN (11:40)
[2020-05-23] MEDS: SNACK - Diabetic Appropriate PO SCH (20:00)
[2020-05-23] MEDS ORDERED: SOLU-Cortef INJ IVP SCH (21:00)
[2020-05-24 03:26] LABS: BASOPHILS % (AUTO) 0.1 % (0.2-1.0); HEMATOCRIT 41.3 % (42.0-54.0); HEMOGLOBIN 14.1 g/dL (13.5-18.0); LYMPHOCYTES # (AUTO) 0.4 X10^3/uL (1.3-2.9); LYMPHOCYTES % (AUTO) 4.8 % (21.0-51.0); MEAN CORPUSCULAR HEMOGLOBIN 29.6 pg (27.0-34.0); MEAN CORPUSCULAR HGB CONC 34.2 g/dL (33.0-35.0); MEAN CORPUSCULAR VOLUME 86.3 fL (80.0-100.0); MEAN PLATELET VOLUME 8.9 fL (7.4-11.0); MONOCYTES # (AUTO) 0.6 x10^3/uL (0.3-0.8); MONOCYTES % (AUTO) 6.4 % (0.0-13.0); NEUTROPHILS # (AUTO) 7.8 x10^3/uL (2.2-4.8); NEUTROPHILS % (AUTO) 88.7 % (42.0-75.0); PLATELET COUNT 154 X10^3/uL (150.0-450.0); RED BLOOD COUNT 4.79 X10^6/uL (4.7-6.0); WHITE BLOOD COUNT 8.9 X10^3/uL (3.6-10.0)
[2020-05-24 03:28] LABS: CALCIUM 7.6 mg/dL (8.5-10.1); CARBON DIOXIDE 16.9 mmol/L (21-32); CREATININE 2.46 mg/dL (0.70-1.30)
[2020-05-24] MEDS: ASCORBIC ACID INJ MULTI-DOSE VIAL 1,500 MG in NS 100 ML IV 100 ML IV SCH ×4 (03:45→20:14)
[2020-05-24] MEDS: NS 1000 ML 1,000 ML IV SCH ×3 (06:15→21:33)
[2020-05-24] MEDS: HumuLIN R SC PRN ×4 (06:16→21:33)
[2020-05-24] MEDS: ZOSYN VIAL 3.375 GRAMS 3.375 G in NS 100 ML IV + SPIKE MINIBAG* 100 ML IV SCH ×3 (06:16→21:32)
[2020-05-24 06:45] LABS: ABG BASE EXCESS -5.5 mmol/L (-2.0-2.0); ABG HCO3 19.2 mmol/L (22-26)
[2020-05-24 06:46] LABS: ABG ALLEN TEST POS
[2020-05-24] MEDS: HEPARIN SODIUM IN D5W 25,000 UNITS/500 ML BAG IV PRN ×2 (07:03→16:10)
[2020-05-24] MEDS ORDERED: ZOFRAN INJ 4 MG VIAL IVP PRN (08:17)
[2020-05-24] MEDS ORDERED: TUSSIONEX PENNKINETIC SUSP PO PRN (08:20)
[2020-05-24] MEDS: LANTUS SC SCH (08:21)
[2020-05-24] MEDS: REMDESIVIR (INVESTIGATIONAL DRUG GS-5734) 100 MG in NS 250 ML IV 250 ML IV SCH (08:22)
[2020-05-24] MEDS: ZINC SULFATE PO SCH (08:23)
[2020-05-24] MEDS: VITAMIN A PO SCH (08:23)
[2020-05-24] MEDS: ZITHROMAX TAB 250 MG PO SCH (08:24)
[2020-05-24] MEDS ORDERED: DECADRON TAB ONE (08:26)
[2020-05-24] MEDS ORDERED: DECADRON TAB PO SCH (09:00)
[2020-05-24 09:07] LABS: ALBUMIN 2.6 g/dL (3.4-5.0); BILIRUBIN,DIRECT 0.2 mg/dL (0-0.2); TOTAL PROTEIN 6.1 g/dL (6.4-8.2)
--- NOTE | 2020-05-24 09:20 | PCM.PROG ---
Progress Note Progress Note for Day of Date of Exam: 05/24/20 Subjective Subjective: Patient seen at bedside, overnight patient was noted to have low sats so his HHFNC was increased to 74%. Patient states he does not feel well today. He has been having diarrhea since yesterday evening, 2 loose stools today so far. He reports nausea, no vomiting but reports does not want to eat. He also reports abdominal discomfort. He has mild cough. Denies fever or chills. Patient has been off Levophed since yesterday afternoon. Labs: WBC-8.9 Plt: 154 K: 3.5 BUN/Cr: 52/2.46 ( baseline around 1.5-1.6) CO2: 16.9 ECHO (05/24/20): EF 57%, Grade 1 DD, pulmonary HTN. ABG this morning was done on HHF: 7.36/34/66/19.2 Plan: will get KUB and CXR, lactic acid, CRP, Mag, add hepatic panel, order urine acetone, stool studies, C.diff. Add Famotidine IV daily, zofran prn. Changed diet to full liquids. Order convalescent plasma. Increase Lantus to 25 units, continue SSI. Continue heparin drip for possible blood clot. Past Medical Family Social History Past Med/Fam/Surg Hx: No changes since H&P Allergies: Allergies No Known Drug Allergies Allergy (Verified 05/21/20 21:13) Review of Systems ROS: No change since H&P Vital Signs and I&O's Vital Signs: Temperature 98.9 F Pulse Rate [Left] 69 Pulse Rate 83 Respiratory Rate 32 Blood Pressure [Left Arm] 81/47 Blood Pressure 103/57 O2 Sat by Pulse Oximetry 92 Intake and Output: Intake & Output 05/21/20 05/22/20 05/23/20 05/24/20 23:59 23:59 23:59 23:59 Intake Total 9.7 / 9.7 4815 / 4815 6057 / 6057 1853 / 1853 Output Total 4050 / 4050 1850 / 1850 600 / 600 Balance 9.7 / 9.7 765 / 765 4207 / 4207 1253 / 1253 Physical Exam Oriented: Normal Eyes: Normal Ear: Normal Throat: Normal Respiratory: Generalized and Diminished Cardiovascular: Normal and Edema (slight LE edema b/l ) Auscultation: Bowel Sounds: Normal Tenderness: Epigastric Skin: Normal Musculoskeletal: Normal Mood Description: Calm Affect: Normal Speech Pattern: Clear and Appropriate Laboratory and Diagnostics Result Diagrams: 05/24/20 02:45 05/24/20 02:45 Labs: 05/21/20 21:57 Blood Blood Culture - Preliminary 05/21/20 21:52 Blood Blood Culture - Preliminary Laboratory WBC 8.9 X10^3/uL (3.6-10.0) 05/24/20 02:45 RBC 4.79 X10^6/uL (4.7-6.0) 05/24/20 02:45 Hgb 14.1 g/dL (13.5-18.0) 05/24/20 02:45 Hct 41.3 % (42.0-54.0) L 05/24/20 02:45 MCV 86.3 fL (80.0-100.0) 05/24/20 02:45 MCH 29.6 pg (27.0-34.0) 05/24/20 02:45 MCHC 34.2 g/dL (33.0-35.0) 05/24/20 02:45 RDW 14.0 % (11.6-16.5) 05/24/20 02:45 Plt Count 154 X10^3/uL (150.0-450.0) 05/24/20 02:45 MPV 8.9 fL (7.4-11.0) 05/24/20 02:45 Neut % (Auto) 88.7 % (42.0-75.0) H 05/24/20 02:45 Lymph % (Auto) 4.8 % (21.0-51.0) L 05/24/20 02:45 Long % (Auto) 6.4 % (0.0-13.0) 05/24/20 02:45 Eos % (Auto) 0.0 % (0.9-2.9) L 05/24/20 02:45 Baso % (Auto) 0.1 % (0.2-1.0) L 05/24/20 02:45 Neut # (Auto) 7.8 x10^3/uL (2.2-4.8) H 05/24/20 02:45 Lymph # (Auto) 0.4 X10^3/uL (1.3-2.9) L 05/24/20 02:45 Long # (Auto) 0.6 x10^3/uL (0.3-0.8) 05/24/20 02:45 Eos # (Auto) 0.0 x10^3/uL (0.0-0.2) 05/24/20 02:45 Baso # (Auto) 0.0 X10^3/uL (0.0-0.1) 05/24/20 02:45 Absolute Nucleated RBC 0.1 /100WBC 05/24/20 02:45 PT 13.9 SECONDS (11.8-14.3) 05/22/20 10:30 INR Target Range - 05/22/20 10:30 INR 1.11 (0.8-1.3) 05/22/20 10:30 APTT 109.8 SECONDS (22.9-36.5) H 05/24/20 02:45 PTT Comment - 05/24/20 02:45 D-Dimer 1.01 ug/ml (0.0-0.57) H* 05/21/20 21:16 Sample Site Lrad 05/24/20 06:38 ABG pH 7.360 (7.35-7.45) 05/24/20 06:38 ABG pCO2 34.0 mmHg (35.0-45.0) L 05/24/20 06:38 ABG pO2 66.0 mmHg (80.0-100.0) L 05/24/20 06:38 ABG HCO3 19.2 mmol/L (22-26) L 05/24/20 06:38 ABG O2 Saturation 92.0 % (90-100) 05/24/20 06:38 ABG Base Excess -5.5 mmol/L (-2.0-2.0) L 05/24/20 06:38 Venancio Test Pos 05/24/20 06:38 A-a Gradient 419.0 mmHg 05/24/20 06:38 FiO2 74.0 05/24/20 06:38 Blood Gas Comments Darin abg well-mtf 05/24/20 06:38 Sodium 139 mmol/L (136-145) 05/24/20 02:45 Corrected Sodium 145 mmol/L (136-145) 05/24/20 02:45 Potassium 3.5 mmol/L (3.5-5.1) 05/24/20 02:45 Chloride 105 mmol/L (98-107) 05/24/20 02:45 Carbon Dioxide 16.9 mmol/L (21-32) L 05/24/20 02:45 BUN 52 mg/dL (7-18) H 05/24/20 02:45 Creatinine 2.46 mg/dL (0.70-1.30) H 05/24/20 02:45 Est GFR (MDRD) Af Amer 35 (>60) L 05/24/20 02:45 Est GFR (MDRD) Non-Af 29 (>60) L 05/24/20 02:45 Glucose 334 mg/dL (65-99) H 05/24/20 02:45 POC Glucose (mg/dL) 278 mg/dL (65-99) H 05/24/20 05:36 Hemoglobin A1c 8.5 % 05/23/20 04:30 Lactic Acid 2.1 mmol/L (0.4-2.0) H 05/24/20 08:20 Calcium 7.6 mg/dL (8.5-10.1) L 05/24/20 02:45 Corrected Calcium 8.9 mg/dL (8.5-10.1) 05/22/20 04:30 Ferritin 1593 ng/mL (26-388) H 05/21/20 21:16 Total Bilirubin 0.90 mg/dL (0.2-1.0) 05/22/20 04:30 AST 97 Units/L (15-37) H 05/22/20 04:30 ALT 65 Units/L (12-78) 05/22/20 04:30 Alkaline Phosphatase 61 Units/L (46-116) 05/22/20 04:30 Troponin I 0.04 ng/mL (0-1.5) 05/22/20 04:30 C-Reactive Protein 110.20 mg/L (0-3.0) H 05/23/20 04:30 B-Natriuretic Peptide 85.9 pg/mL (0-79) H 05/22/20 04:30 Total Protein 6.3 g/dL (6.4-8.2) L 05/22/20 04:30 Albumin 2.8 g/dL (3.4-5.0) L 05/22/20 04:30 Globulin 3.5 g/dL (2.5-4.5) 05/22/20 04:30 Albumin/Globulin Ratio 0.8 Ratio (1.1-2.1) L 05/22/20 04:30 Plan (1) Pneumonia due to COVID-19 virus: Status: Acute (2) Acute respiratory failure due to COVID-19: Status: Acute (3) Shock due to systemic infection: Status: Acute (4) Elevated d-dimer: Status: Acute (5) Acute on chronic renal failure: Status: Acute Qualifiers: Acute renal failure type: unspecified Chronic kidney disease stage: unspecified stage Qualified Code(s): N17.9 - Acute kidney failure, unspecified; N18.9 - Chronic kidney disease, unspecified (6) Thrombocytopenia: Status: Acute (7) CHF (congestive heart failure): Status: Acute Qualifiers: Heart failure chronicity: chronic Heart failure type: diastolic Qualified Code(s): I50.32 - Chronic diastolic (congestive) heart failure (8) Diabetes: Status: Acute Qualifiers: Diabetes mellitus type: type 2 Diabetes mellitus buttermaker insulin use: with buttermaker use Diabetes mellitus complication status: without complication Qualified Code(s): E11.9 - Type 2 diabetes mellitus without complications; Z79.4 - MCFP (current) use of insulin (9) Metabolic acidosis: Status: Acute (10) Diarrhea: Status: Acute Qualifiers: Diarrhea type: unspecified type Qualified Code(s): R19.7 - Diarrhea, unspecified
[2020-05-24] MEDS: DUONEB 0.5 MG/3 MG (3 mL) NEB SCH ×4 (09:40→21:10)
[2020-05-24] MEDS: PULMICORT NEB TX 0.5 MG NEB SCH ×2 (09:40→21:10)
--- NOTE | 2020-05-24 11:57 | RAD ---
HISTORYABD PAIN, NAUSEASTUDYKUBCOMPARISONNoneTECHNIQUETwo-view abdomenFINDINGSNonobstructive bowel gas pattern. No def inite pneumatosis, free air or portal venous gas. No suspicious calcifications.IMPRESSIONNonobstructi ve bowel gas pattern.Electronically signed by: Per Mas (May 24, 2020 11:56:16)
--- NOTE | 2020-05-24 12:01 | RAD ---
HISTORYCOVID HYPOXIASTUDYCHEST, 1 VIEWCOMPARISONOne day priorTECHNIQUEAP view of the chestFINDINGSCardiac silhouette is stably enlarged. Elevated right hemidiaphragm. Left multifocal airspace disease appears worse. Mild worsening in right perihilar airspace disease. No pneumothorax.IMPRESSIONMild worsening in bilateral multifocal airspace disease.Electronically signed by: Per Mas (May 24, 2020 12:01:08)
[2020-05-24] MEDS: PEPCID 20 MG IV PREMIX* 20 MG/50 ML BAG IV SCH (12:12)
[2020-05-24] MEDS ORDERED: SODIUM BICARBONATE 8.4% INJ ADULT IVP ONE (12:29)
[2020-05-24] MEDS ORDERED: NS 250 ML IV 250 ML IV ONE ×2 (16:54→17:00)
[2020-05-24] MEDS: SNACK - Diabetic Appropriate PO SCH (21:00)
[2020-05-25] MEDS: ASCORBIC ACID INJ MULTI-DOSE VIAL 1,500 MG in NS 100 ML IV 100 ML IV SCH ×4 (03:06→21:00)
[2020-05-25] MEDS: NS 1000 ML 1,000 ML IV SCH ×2 (04:12→16:00)
[2020-05-25 05:10] LABS: BASOPHILS % (AUTO) 0.2 % (0.2-1.0); HEMATOCRIT 40.7 % (42.0-54.0); LYMPHOCYTES # (AUTO) 0.4 X10^3/uL (1.3-2.9); LYMPHOCYTES % (AUTO) 5.9 % (21.0-51.0); MEAN CORPUSCULAR HEMOGLOBIN 29.7 pg (27.0-34.0); MEAN CORPUSCULAR HGB CONC 34.3 g/dL (33.0-35.0); MEAN CORPUSCULAR VOLUME 86.5 fL (80.0-100.0); MEAN PLATELET VOLUME 8.4 fL (7.4-11.0); MONOCYTES # (AUTO) 0.6 x10^3/uL (0.3-0.8); MONOCYTES % (AUTO) 7.8 % (0.0-13.0); NEUTROPHILS # (AUTO) 6.5 x10^3/uL (2.2-4.8); NEUTROPHILS % (AUTO) 86.1 % (42.0-75.0); PLATELET COUNT 140 X10^3/uL (150.0-450.0); RED BLOOD COUNT 4.71 X10^6/uL (4.7-6.0); RED CELL DISTRIBUTION WIDTH 14.1 % (11.6-16.5); WHITE BLOOD COUNT 7.5 X10^3/uL (3.6-10.0)
[2020-05-25 05:14] LABS: CALCIUM 7.5 mg/dL (8.5-10.1); CREATININE 1.82 mg/dL (0.70-1.30)
[2020-05-25] MEDS: ZOSYN VIAL 3.375 GRAMS 3.375 G in NS 100 ML IV + SPIKE MINIBAG* 100 ML IV SCH ×3 (06:14→22:00)
[2020-05-25] MEDS: LANTUS SC SCH (08:00)
[2020-05-25] MEDS: PULMICORT NEB TX 0.5 MG NEB SCH ×2 (08:10→20:25)
[2020-05-25] MEDS: DUONEB 0.5 MG/3 MG (3 mL) NEB SCH ×4 (08:10→20:25)
[2020-05-25] MEDS: VITAMIN A PO SCH (08:33)
[2020-05-25] MEDS: ZINC SULFATE PO SCH (08:35)
[2020-05-25] MEDS: ZITHROMAX TAB 250 MG PO SCH (08:35)
[2020-05-25] MEDS: PEPCID 20 MG IV PREMIX* 20 MG/50 ML BAG IV SCH (09:18)
--- NOTE | 2020-05-25 09:42 | PCM.PROG ---
Progress Note Progress Note for Day of Date of Exam: 05/25/20 Subjective Subjective: Patient seen at bedside. Overnight, patient noted to be desaturating on HHFNC so he was switched to BiPAP to help decrease work of breathing. This morning patient is on BiPAP. He states his breathing is a little better. He states diarrhea has improved, he had 4 loose stools yesterday. No ricky sea/vomiting. He has been tolerating full liquid diet. Patient did receive one unit of plasma overnight. Labs: WBC 7.5 Plt: 140 K: 3.6 BUN/Cr: 33/1.82 ( baseline around 1.5-1.6) CO2: 24 ECHO (05/24/20): EF 57%, Grade 1 DD, pulmonary HTN. CXR yesterday showed worsening b/l infiltrates KUB: negative for acute disease Plan: continue BiPAP for now, discussed with RT. Switch to HHFNC as tolerated for eating, will advance diet. Continue Zosyn, Azithro and Remdesivir. Will stop decadron and start solumedrol. Give one dose of Actemra. Decrease IVF to 75cc/hr. Continue duonebs, pulmicort, IS. Add morphine and ativan for anxiety and air hunger. Continue heparin drip. Monitor AM labs and cultures. Critical care time spent 30-74 mins for clinical assessment, reviewing labs/imaging and making clinical decisions. Patient remains in a critical condition, discussed with at bedside. Past Medical Family Social History Past Med/Fam/Surg Hx: No changes since H&P Allergies: Allergies No Known Drug Allergies Allergy (Verified 05/21/20 21:13) Review of Systems ROS: No change since H&P Vital Signs and I&O's Vital Signs: Temperature 98.0 F Pulse Rate [Left] 69 Pulse Rate 79 Respiratory Rate 32 Blood Pressure [Left Arm] 81/47 Blood Pressure 110/70 O2 Sat by Pulse Oximetry 89 Intake and Output: Intake & Output 05/22/20 05/23/20 05/24/20 05/25/20 23:59 23:59 23:59 23:59 Intake Total 4815 / 4815 6057 / 6057 4419 / 4419 2882 / 2882 Output Total 4050 / 4050 1850 / 1850 2100 / 2100 Balance 765 / 765 4207 / 4207 2319 / 2319 2882 / 2882 Physical Exam Oriented: Normal Eyes: Normal Ear: Normal Throat: Dry Respiratory: Generalized, Diminished and Wheezes Cardiovascular: Normal and Edema (slight LE edema b/l ) Auscultation: Bowel Sounds: Normal Skin: Normal Musculoskeletal: Normal Psychiatric: Anxiety Mood Description: Calm Affect: Normal Speech Pattern: Clear and Appropriate Laboratory and Diagnostics Result Diagrams: 05/25/20 04:45 05/25/20 04:45 Labs: 05/21/20 21:57 Blood Blood Culture - Preliminary 05/21/20 21:52 Blood Blood Culture - Preliminary Laboratory WBC 7.5 X10^3/uL (3.6-10.0) 05/25/20 04:45 RBC 4.71 X10^6/uL (4.7-6.0) 05/25/20 04:45 Hgb 14.0 g/dL (13.5-18.0) 05/25/20 04:45 Hct 40.7 % (42.0-54.0) L 05/25/20 04:45 MCV 86.5 fL (80.0-100.0) 05/25/20 04:45 MCH 29.7 pg (27.0-34.0) 05/25/20 04:45 MCHC 34.3 g/dL (33.0-35.0) 05/25/20 04:45 RDW 14.1 % (11.6-16.5) 05/25/20 04:45 Plt Count 140 X10^3/uL (150.0-450.0) L 05/25/20 04:45 MPV 8.4 fL (7.4-11.0) 05/25/20 04:45 Neut % (Auto) 86.1 % (42.0-75.0) H 05/25/20 04:45 Lymph % (Auto) 5.9 % (21.0-51.0) L 05/25/20 04:45 [place] % (Auto) 7.8 % (0.0-13.0) 05/25/20 04:45 Eos % (Auto) 0.0 % (0.9-2.9) L 05/25/20 04:45 Baso % (Auto) 0.2 % (0.2-1.0) 05/25/20 04:45 Neut # (Auto) 6.5 x10^3/uL (2.2-4.8) H 05/25/20 04:45 Lymph # (Auto) 0.4 X10^3/uL (1.3-2.9) L 05/25/20 04:45 [place] # (Auto) 0.6 x10^3/uL (0.3-0.8) 05/25/20 04:45 Eos # (Auto) 0.0 x10^3/uL (0.0-0.2) 05/25/20 04:45 Baso # (Auto) 0.0 X10^3/uL (0.0-0.1) 05/25/20 04:45 Absolute Nucleated RBC 0.1 /100WBC 05/25/20 04:45 PT 13.9 SECONDS (11.8-14.3) 05/22/20 10:30 INR Target Range - 05/22/20 10:30 INR 1.11 (0.8-1.3) 05/22/20 10:30 APTT 75.6 SECONDS (22.9-36.5) H 05/25/20 04:45 PTT Comment - 05/25/20 04:45 D-Dimer 1.01 ug/ml (0.0-0.57) H* 05/21/20 21:16 Sample Site Lrad 05/24/20 06:38 ABG pH 7.360 (7.35-7.45) 05/24/20 06:38 ABG pCO2 34.0 mmHg (35.0-45.0) L 05/24/20 06:38 ABG pO2 66.0 mmHg (80.0-100.0) L 05/24/20 06:38 ABG HCO3 19.2 mmol/L (22-26) L 05/24/20 06:38 ABG O2 Saturation 92.0 % (90-100) 05/24/20 06:38 ABG Base Excess -5.5 mmol/L (-2.0-2.0) L 05/24/20 06:38 Venancio Test Pos 05/24/20 06:38 A-a Gradient 419.0 mmHg 05/24/20 06:38 FiO2 74.0 05/24/20 06:38 Blood Gas Comments Darin abg well-mtf 05/24/20 06:38 Sodium 141 mmol/L (136-145) 05/25/20 04:45 Corrected Sodium 144 mmol/L (136-145) 05/25/20 04:45 Potassium 3.6 mmol/L (3.5-5.1) 05/25/20 04:45 Chloride 108 mmol/L (98-107) H 05/25/20 04:45 Carbon Dioxide 24.0 mmol/L (21-32) 05/25/20 04:45 BUN 33 mg/dL (7-18) H 05/25/20 04:45 Creatinine 1.82 mg/dL (0.70-1.30) H 05/25/20 04:45 Est GFR (MDRD) Af Amer 50 (>60) L 05/25/20 04:45 Est GFR (MDRD) Non-Af 41 (>60) L 05/25/20 04:45 Glucose 219 mg/dL (65-99) H 05/25/20 04:45 POC Glucose (mg/dL) 199 mg/dL (65-99) H 05/25/20 05:57 Hemoglobin A1c 8.5 % 05/23/20 04:30 Lactic Acid 2.1 mmol/L (0.4-2.0) H 05/24/20 08:20 Calcium 7.5 mg/dL (8.5-10.1) L 05/25/20 04:45 Corrected Calcium 8.9 mg/dL (8.5-10.1) 05/22/20 04:30 Magnesium 2.0 mg/dL (1.7-2.9) 05/24/20 02:45 Ferritin 1593 ng/mL (26-388) H 05/21/20 21:16 Total Bilirubin 0.50 mg/dL (0.2-1.0) 05/24/20 02:45 Direct Bilirubin 0.20 mg/dL (0-0.2) 05/24/20 02:45 Indirect Bilirubin 0.30 mg/dL (0.2-0.8) 05/24/20 02:45 AST 54 Units/L (15-37) H 05/24/20 02:45 ALT 58 Units/L (12-78) 05/24/20 02:45 Alkaline Phosphatase 63 Units/L (46-116) 05/24/20 02:45 Troponin I 0.04 ng/mL (0-1.5) 05/22/20 04:30 C-Reactive Protein 91.70 mg/L (0-3.0) H 05/24/20 02:45 B-Natriuretic Peptide 85.9 pg/mL (0-79) H 05/22/20 04:30 Total Protein 6.1 g/dL (6.4-8.2) L 05/24/20 02:45 Albumin 2.6 g/dL (3.4-5.0) L 05/24/20 02:45 Globulin 3.5 g/dL (2.5-4.5) 05/24/20 02:45 Albumin/Globulin Ratio 0.7 Ratio (1.1-2.1) L 05/24/20 02:45 Urine Acetone Negative (NEGATIVE) 05/24/20 11:30 Stool for White Cells Cancelled 05/24/20 15:45 Stl C. diff Tox B Gene Cancelled 05/24/20 15:45 Stl C. diff [id number] Cancelled 05/24/20 15:45 Blood Type O POSITIVE 05/24/20 08:20 Antibody Screen Cancelled 05/24/20 08:20 Plan (1) Pneumonia due to COVID-19 virus: Status: Acute (2) Acute respiratory failure due to COVID-19: Status: Acute (3) Shock due to systemic infection: Status: Acute (4) Elevated d-dimer: Status: Acute (5) Acute on chronic renal failure: Status: Acute Qualifiers: Acute renal failure type: unspecified Chronic kidney disease stage: unspecified stage Qualified Code(s): N17.9 - Acute kidney failure, unspecified; N18.9 - Chronic kidney disease, unspecified (6) Thrombocytopenia: Status: Acute (7) CHF (congestive heart failure): Status: Acute Qualifiers: Heart failure chronicity: chronic Heart failure type: diastolic Qualified Code(s): I50.32 - Chronic diastolic (congestive) heart failure (8) Diabetes: Status: Acute Qualifiers: Diabetes mellitus complication status: without complication Diabetes mellitus mcfp insulin use: with mcfp use Diabetes mellitus type: type 2 Qualified Code(s): E11.9 - Type 2 diabetes mellitus without complications; Z79.4 - intermodal dispatcher (current) use of insulin (9) Metabolic acidosis: Status: Acute (10) Diarrhea: Status: Acute Qualifiers: Diarrhea type: unspecified type Qualified Code(s): R19.7 - Diarrhea, unspecified
[2020-05-25] MEDS: REMDESIVIR (INVESTIGATIONAL DRUG GS-5734) 100 MG in NS 250 ML IV 250 ML IV SCH (09:54)
[2020-05-25] MEDS: SOLU-Medrol 125 MG VIAL IVP SCH ×2 (09:54→21:00)
[2020-05-25] MEDS ORDERED: ATIVAN INJ 2 MG VIAL IVP PRN (10:17)
[2020-05-25] MEDS ORDERED: MORPHINE SULFATE INJ 2 MG INJ ONE (10:20)
[2020-05-25] MEDS: MORPHINE SULFATE INJ 2 MG INJ IVP PRN ×3 (10:27→21:30)
[2020-05-25] MEDS ORDERED: ACTEMRA 400 MG in NS 100 ML IV 80 ML IV SCH (11:05)
[2020-05-25] MEDS: HumuLIN R SC PRN ×3 (11:33→22:00)
[2020-05-25] MEDS: HEPARIN SODIUM IN D5W 25,000 UNITS/500 ML BAG IV PRN (14:41)
[2020-05-25] MEDS ORDERED: LASIX IVP ONE (18:18)
[2020-05-25] MEDS ORDERED: LASIX ONE (18:21)
[2020-05-25] MEDS: SNACK - Diabetic Appropriate PO SCH (20:00)
[2020-05-26] MEDS: ASCORBIC ACID INJ MULTI-DOSE VIAL 1,500 MG in NS 100 ML IV 100 ML IV SCH ×4 (03:53→20:49)
[2020-05-26] MEDS: ZOSYN VIAL 3.375 GRAMS 3.375 G in NS 100 ML IV + SPIKE MINIBAG* 100 ML IV SCH ×3 (05:07→22:30)
[2020-05-26 05:35] LABS: BASOPHILS % (AUTO) 0.2 % (0.2-1.0); HEMATOCRIT 40.8 % (42.0-54.0); HEMOGLOBIN 14.1 g/dL (13.5-18.0); LYMPHOCYTES # (AUTO) 0.3 X10^3/uL (1.3-2.9); LYMPHOCYTES % (AUTO) 5.3 % (21.0-51.0); MEAN CORPUSCULAR HEMOGLOBIN 29.8 pg (27.0-34.0); MEAN CORPUSCULAR HGB CONC 34.5 g/dL (33.0-35.0); MEAN CORPUSCULAR VOLUME 86.3 fL (80.0-100.0); MEAN PLATELET VOLUME 8.4 fL (7.4-11.0); MONOCYTES # (AUTO) 0.2 x10^3/uL (0.3-0.8); MONOCYTES % (AUTO) 3.8 % (0.0-13.0); NEUTROPHILS # (AUTO) 5.7 x10^3/uL (2.2-4.8); NEUTROPHILS % (AUTO) 90.7 % (42.0-75.0); PLATELET COUNT 169 X10^3/uL (150.0-450.0); RED BLOOD COUNT 4.73 X10^6/uL (4.7-6.0); RED CELL DISTRIBUTION WIDTH 13.9 % (11.6-16.5); WHITE BLOOD COUNT 6.2 X10^3/uL (3.6-10.0)
[2020-05-26 05:39] LABS: ALBUMIN 2.2 g/dL (3.4-5.0); CALCIUM 7.8 mg/dL (8.5-10.1); CARBON DIOXIDE 21.8 mmol/L (21-32); COR CA(FOR HYPOALB) 9.2 mg/dL (8.5-10.1); CREATININE 1.78 mg/dL (0.70-1.30); TOTAL PROTEIN 6.2 g/dL (6.4-8.2)
[2020-05-26 06:09] LABS: PLATELET MORPHOLOGY COMMENT NORMAL (NORMAL)
[2020-05-26] MEDS: HumuLIN R SC PRN ×4 (06:27→21:30)
[2020-05-26] MEDS: SOLU-Medrol 125 MG VIAL IVP SCH ×2 (08:16→20:55)
[2020-05-26] MEDS: VITAMIN A PO SCH (08:16)
[2020-05-26] MEDS: ZITHROMAX TAB 250 MG PO SCH (08:19)
[2020-05-26] MEDS: ZINC SULFATE PO SCH (08:19)
[2020-05-26] MEDS ORDERED: LANTUS SC ONE (08:27)
[2020-05-26] MEDS ORDERED: LASIX IVP ONE (08:28)
[2020-05-26] MEDS: PULMICORT NEB TX 0.5 MG NEB SCH ×2 (08:55→21:20)
[2020-05-26] MEDS: DUONEB 0.5 MG/3 MG (3 mL) NEB SCH ×3 (08:55→21:20)
[2020-05-26] MEDS ORDERED: LANTUS SC SCH (09:00)
--- NOTE | 2020-05-26 09:01 | PCM.PROG ---
Progress Note Progress Note for Day of Date of Exam: 05/26/20 Subjective Subjective: Patient seen at bedside, he remained on the BiPAP overnight and now switched to HHFNC at 93% with sats in the low 90s. He states he feels better today. He was able to rest well. Denies fever or chills. Diarrhea has almost resolved, 1 BM today. He would like to advance his diet. Denies N/V or abdominal pain. Yesterday evening, due to concern of worsening LE edema, he was given one dose of IV lasix 20 mg. Labs: WBC 6.2 Plt: 169 K: 3.8 BUN/Cr: 35/1.78 ( baseline around 1.5-1.6) CO2: 21.8 ECHO (05/24/20): EF 57%, Grade 1 DD, pulmonary HTN. Plan: will repeat CXR and ABG this morning, titrate HHFNC as tolerated to keep O2 sats > 90%. Will give another dose of lasix this morning. Monitor weight daily, strict I/Os. Continue abx, solumedrol and Remdesivir. Patient has received one dose of plasma therapy. He also received one dose of Actemra yesterday. Monitor AM labs and cultures. Continue heparin drip until renal function improves. Increase Lantus to 30 units daily. Critical care time spent 30-74 mins for clinical assessment, reviewing labs/imaging and making clinical decisions. Patient remains in a critical condition, discussed with at bedside. Past Medical Family Social History Past Med/Fam/Surg Hx: No changes since H&P Allergies: Allergies No Known Drug Allergies Allergy (Verified 05/21/20 21:13) Review of Systems ROS: No change since H&P Vital Signs and I&O's Vital Signs: Temperature 98.5 F Pulse Rate [Left] 69 Pulse Rate 50 Respiratory Rate 24 Blood Pressure [Left Arm] 81/47 Blood Pressure 126/78 O2 Sat by Pulse Oximetry 92 Intake and Output: Intake & Output 05/23/20 05/24/20 05/25/20 05/26/20 23:59 23:59 23:59 23:59 Intake Total 6057 / 6057 4419 / 4419 5867 / 5867 3068 / 3068 Output Total 1850 / 1850 2100 / 2100 400 / 400 Balance 4207 / 4207 2319 / 2319 5467 / 5467 3068 / 3068 Physical Exam Oriented: Normal Eyes: Normal Ear: Normal Throat: Dry Respiratory: Generalized, Wheezes and Rales Cardiovascular: Normal and Edema (slight LE edema b/l ) Auscultation: Bowel Sounds: Normal Tenderness: Normal Skin: Normal Musculoskeletal: Normal Psychiatric: Normal Mood Description: Calm Affect: Normal Speech Pattern: Clear and Appropriate Laboratory and Diagnostics Result Diagrams: 05/26/20 04:45 05/26/20 04:45 Labs: 05/21/20 21:57 Blood Blood Culture - Preliminary 05/21/20 21:52 Blood Blood Culture - Preliminary Laboratory WBC 6.2 X10^3/uL (3.6-10.0) 05/26/20 04:45 RBC 4.73 X10^6/uL (4.7-6.0) 05/26/20 04:45 Hgb 14.1 g/dL (13.5-18.0) 05/26/20 04:45 Hct 40.8 % (42.0-54.0) L 05/26/20 04:45 MCV 86.3 fL (80.0-100.0) 05/26/20 04:45 MCH 29.8 pg (27.0-34.0) 05/26/20 04:45 MCHC 34.5 g/dL (33.0-35.0) 05/26/20 04:45 RDW 13.9 % (11.6-16.5) 05/26/20 04:45 Plt Count 169 X10^3/uL (150.0-450.0) 05/26/20 04:45 Plt Count Comment Adequate (ADEQUATE) 05/26/20 04:45 MPV 8.4 fL (7.4-11.0) 05/26/20 04:45 Neut % (Auto) 90.7 % (42.0-75.0) H 05/26/20 04:45 Lymph % (Auto) 5.3 % (21.0-51.0) L 05/26/20 04:45 [place] % (Auto) 3.8 % (0.0-13.0) 05/26/20 04:45 Eos % (Auto) 0.0 % (0.9-2.9) L 05/26/20 04:45 Baso % (Auto) 0.2 % (0.2-1.0) 05/26/20 04:45 Neut # (Auto) 5.7 x10^3/uL (2.2-4.8) H 05/26/20 04:45 Lymph # (Auto) 0.3 X10^3/uL (1.3-2.9) L 05/26/20 04:45 [place] # (Auto) 0.2 x10^3/uL (0.3-0.8) L 05/26/20 04:45 Eos # (Auto) 0.0 x10^3/uL (0.0-0.2) 05/26/20 04:45 Baso # (Auto) 0.0 X10^3/uL (0.0-0.1) 05/26/20 04:45 Absolute Nucleated RBC 0.2 /100WBC 05/26/20 04:45 Total Counted 100 05/26/20 04:45 Neutrophils % (Manual) 87 % (39-76) H 05/26/20 04:45 Lymphocytes % (Manual) 12 % (13-43) L 05/26/20 04:45 Monocytes % (Manual) 1 % (4-9) L 05/26/20 04:45 Plt Morphology Comment Normal (NORMAL) 05/26/20 04:45 RBC Morphology Normal (NORMAL) 05/26/20 04:45 PT 13.9 SECONDS (11.8-14.3) 05/22/20 10:30 INR Target Range - 05/22/20 10:30 INR 1.11 (0.8-1.3) 05/22/20 10:30 APTT 63.4 SECONDS (22.9-36.5) H 05/26/20 04:45 PTT Comment - 05/26/20 04:45 D-Dimer 1.01 ug/ml (0.0-0.57) H* 05/21/20 21:16 Sample Site Lrad 05/24/20 06:38 ABG pH 7.360 (7.35-7.45) 05/24/20 06:38 ABG pCO2 34.0 mmHg (35.0-45.0) L 05/24/20 06:38 ABG pO2 66.0 mmHg (80.0-100.0) L 05/24/20 06:38 ABG HCO3 19.2 mmol/L (22-26) L 05/24/20 06:38 ABG O2 Saturation 92.0 % (90-100) 05/24/20 06:38 ABG Base Excess -5.5 mmol/L (-2.0-2.0) L 05/24/20 06:38 Venancio Test Pos 05/24/20 06:38 A-a Gradient 419.0 mmHg 05/24/20 06:38 FiO2 74.0 05/24/20 06:38 Blood Gas Comments Darin abg well-mtf 05/24/20 06:38 Sodium 141 mmol/L (136-145) 05/26/20 04:45 Corrected Sodium 147 mmol/L (136-145) H 05/26/20 04:45 Potassium 3.8 mmol/L (3.5-5.1) 05/26/20 04:45 Chloride 108 mmol/L (98-107) H 05/26/20 04:45 Carbon Dioxide 21.8 mmol/L (21-32) 05/26/20 04:45 BUN 35 mg/dL (7-18) H 05/26/20 04:45 Creatinine 1.78 mg/dL (0.70-1.30) H 05/26/20 04:45 Est GFR (MDRD) Af Amer 51 (>60) L 05/26/20 04:45 Est GFR (MDRD) Non-Af 43 (>60) L 05/26/20 04:45 Glucose 347 mg/dL (65-99) H 05/26/20 04:45 POC Glucose (mg/dL) 384 mg/dL (65-99) H 05/25/20 20:44 Hemoglobin A1c 8.5 % 05/23/20 04:30 Lactic Acid 2.1 mmol/L (0.4-2.0) H 05/24/20 08:20 Calcium 7.8 mg/dL (8.5-10.1) L 05/26/20 04:45 Corrected Calcium 9.2 mg/dL (8.5-10.1) 05/26/20 04:45 Magnesium 2.0 mg/dL (1.7-2.9) 05/24/20 02:45 Ferritin 1593 ng/mL (26-388) H 05/21/20 21:16 Total Bilirubin 0.60 mg/dL (0.2-1.0) 05/26/20 04:45 Direct Bilirubin 0.20 mg/dL (0-0.2) 05/24/20 02:45 Indirect Bilirubin 0.30 mg/dL (0.2-0.8) 05/24/20 02:45 AST 49 Units/L (15-37) H 05/26/20 04:45 ALT 62 Units/L (12-78) 05/26/20 04:45 Alkaline Phosphatase 66 Units/L (46-116) 05/26/20 04:45 Troponin I 0.04 ng/mL (0-1.5) 05/22/20 04:30 C-Reactive Protein 97.60 mg/L (0-3.0) H 05/25/20 04:45 B-Natriuretic Peptide 85.9 pg/mL (0-79) H 05/22/20 04:30 Total Protein 6.2 g/dL (6.4-8.2) L 05/26/20 04:45 Albumin 2.2 g/dL (3.4-5.0) L 05/26/20 04:45 Globulin 4.0 g/dL (2.5-4.5) 05/26/20 04:45 Albumin/Globulin Ratio 0.6 Ratio (1.1-2.1) L 05/26/20 04:45 Urine Acetone Negative (NEGATIVE) 05/24/20 11:30 Stool for White Cells Cancelled 05/24/20 15:45 Stl C. diff Tox B Gene Cancelled 05/24/20 15:45 Stl C. diff [id number] Cancelled 05/24/20 15:45 Blood Type O POSITIVE 05/24/20 08:20 Antibody Screen Cancelled 05/24/20 08:20 Plan (1) Pneumonia due to COVID-19 virus: Status: Acute (2) Acute respiratory failure due to COVID-19: Status: Acute (3) Shock due to systemic infection: Status: Acute (4) Elevated d-dimer: Status: Acute (5) Acute on chronic renal failure: Status: Acute Qualifiers: Acute renal failure type: unspecified Chronic kidney disease stage: unspecified stage Qualified Code(s): N17.9 - Acute kidney failure, unspecified; N18.9 - Chronic kidney disease, unspecified (6) Thrombocytopenia: Status: Acute (7) CHF (congestive heart failure): Status: Acute Qualifiers: Heart failure chronicity: chronic Heart failure type: diastolic Qualified Code(s): I50.32 - Chronic diastolic (congestive) heart failure (8) Diabetes: Status: Acute Qualifiers: Diabetes mellitus complication status: without complication 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
[2020-05-26 09:16] LABS: ABG BASE EXCESS -3.6 mmol/L (-2.0-2.0); ABG HCO3 20.4 mmol/L (22-26)
[2020-05-26 09:17] LABS: ABG ALLEN TEST POS
[2020-05-26] MEDS: REMDESIVIR (INVESTIGATIONAL DRUG GS-5734) 100 MG in NS 250 ML IV 250 ML IV SCH (09:33)
[2020-05-26] MEDS: PEPCID 20 MG IV PREMIX* 20 MG/50 ML BAG IV SCH (09:34)
[2020-05-26] MEDS: HEPARIN SODIUM IN D5W 25,000 UNITS/500 ML BAG IV PRN (11:08)
--- NOTE | 2020-05-26 11:18 | RAD ---
HISTORYFollow-up COVID-19STUDYChest AP [id number]/22/2020FINDINGSThe heart is enlarged. No definite congestive heart failure is noted. The right hemidiaphragm is elevated. There is been a significant increase in the bilateral infiltrates being followed now with diffuse bilateral confluent ground-glass and alveolar infiltrates present. Bony thorax is unremarkable. No pleural effusions are identified.IMPRESSIONSignificant worsening in the bilateral infiltrates being followed now with diffuse bilateral ground-glass and alveolar filling bilaterallyElectronically signed by: PIERO VAZQUEZ (May 26, 2020 11:18:55)
[2020-05-26] MEDS: LASIX IVP SCH (12:35)
[2020-05-26] MEDS: SNACK - Diabetic Appropriate PO SCH (20:00)
[2020-05-26] MEDS ORDERED: NS 500 ML IV 500 ML IV ONE (20:39)
[2020-05-26] MEDS ORDERED: COREG TAB 6.25 MG PO SCH (21:00)
[2020-05-27] MEDS: HEPARIN SODIUM IN D5W 25,000 UNITS/500 ML BAG IV PRN ×2 (03:30→20:35)
[2020-05-27] MEDS: ASCORBIC ACID INJ MULTI-DOSE VIAL 1,500 MG in NS 100 ML IV 100 ML IV SCH ×4 (03:31→20:34)
[2020-05-27] MEDS: ZOSYN VIAL 3.375 GRAMS 3.375 G in NS 100 ML IV + SPIKE MINIBAG* 100 ML IV SCH ×3 (05:44→22:29)
[2020-05-27 07:51] LABS: BASOPHILS % (AUTO) 0.1 % (0.2-1.0); HEMATOCRIT 40.9 % (42.0-54.0); HEMOGLOBIN 14.1 g/dL (13.5-18.0); LYMPHOCYTES # (AUTO) 0.6 X10^3/uL (1.3-2.9); LYMPHOCYTES % (AUTO) 5.9 % (21.0-51.0); MEAN CORPUSCULAR HEMOGLOBIN 29.6 pg (27.0-34.0); MEAN CORPUSCULAR HGB CONC 34.5 g/dL (33.0-35.0); MEAN CORPUSCULAR VOLUME 85.6 fL (80.0-100.0); MEAN PLATELET VOLUME 7.9 fL (7.4-11.0); MONOCYTES # (AUTO) 0.5 x10^3/uL (0.3-0.8); MONOCYTES % (AUTO) 5.2 % (0.0-13.0); NEUTROPHILS # (AUTO) 8.5 x10^3/uL (2.2-4.8); NEUTROPHILS % (AUTO) 88.8 % (42.0-75.0); PLATELET COUNT 229 X10^3/uL (150.0-450.0); RED BLOOD COUNT 4.77 X10^6/uL (4.7-6.0); RED CELL DISTRIBUTION WIDTH 14.1 % (11.6-16.5); WHITE BLOOD COUNT 9.6 X10^3/uL (3.6-10.0)
[2020-05-27 08:00] LABS: PLATELET MORPHOLOGY COMMENT NORMAL (NORMAL)
[2020-05-27 08:03] LABS: ALBUMIN 2.1 g/dL (3.4-5.0); CALCIUM 7.9 mg/dL (8.5-10.1); CARBON DIOXIDE 24.6 mmol/L (21-32); COR CA(FOR HYPOALB) 9.4 mg/dL (8.5-10.1); CREATININE 2.01 mg/dL (0.70-1.30); TOTAL PROTEIN 5.8 g/dL (6.4-8.2)
[2020-05-27] MEDS: LASIX IVP SCH (08:38)
[2020-05-27] MEDS: PEPCID 20 MG IV PREMIX* 20 MG/50 ML BAG IV SCH (08:39)
[2020-05-27] MEDS: SOLU-Medrol 125 MG VIAL IVP SCH ×2 (08:39→20:34)
[2020-05-27] MEDS: VITAMIN A PO SCH (08:40)
[2020-05-27] MEDS: ZINC SULFATE PO SCH (08:41)
[2020-05-27] MEDS: ZITHROMAX TAB 250 MG PO SCH (08:41)
[2020-05-27 08:42] LABS: MAGNESIUM 2.2 mg/dL (1.7-2.9)
[2020-05-27] MEDS ORDERED: HYDROCHLOROTHIAZIDE 25 MG TAB PO SCH (09:00)
[2020-05-27] MEDS: PULMICORT NEB TX 0.5 MG NEB SCH ×2 (09:15→21:40)
[2020-05-27] MEDS: DUONEB 0.5 MG/3 MG (3 mL) NEB SCH ×4 (09:15→21:40)
--- NOTE | 2020-05-27 09:44 | PCM.PROG ---
Progress Note Progress Note for Day of Date of Exam: 05/27/20 Subjective Subjective: Patient seen at bedside, earlier this morning, his FSBG was noted to be 31. He felt sweaty and drank a cup of orange juice and that increased it to 78. He feels better now. He is currently on max hi-flow. He has been on HHFNC all day yesterday. He states the BiPAP mask is not comfortable and doesn't seal good. He states he feels like his breathing has improved. He does get really SOB with sats in the 70s with minimal exertion. He has mild cough, no fever or chills. He has some diarrhea but not as many BMs as before. He had one lose stool this AM. He has been tolerating PO diet. His HR was noted to be in the 40-50s this AM. CXR did show worsening b/l infiltrates. Due to concern of volume overload, he was given lasix 20mg IV in the AM and then starting on 40 mg IV daily. He has been having good urine output. Labs: WBC 9.6 K: 3.3 BUN/Cr: 44/2.01 ( baseline around 1.5-1.6) CRP: 65 M.2 ECHO (05/24/20): EF 57%, Grade 1 DD, pulmonary HTN. CXR yesterday: worsening b/l infiltrates and ground glass opacities. Plan: will repeat CXR today, titrate HHFNC as tolerated to keep O2 sats > 90%. Discussed trying BiPAP again during the day. Patient verbalized understanding. He declined intubation as of right now if his respiratory status does get worse. Monitor weight daily, strict I/Os. Continue abx, solumedrol and Remdesivir. Patient has received one dose of plasma therapy. He also received one dose of Actemra . Will hold lantus this morning due to hypoglycemia, continue SSI. Hold coreg due to bradycardia, EKG ordered. Stool studies were sent earlier but cancelled, patient continues to have some diarrhea still, will send for C diff. Monitor AM labs and cultures. Continue heparin drip until renal function improves. Order another plasma unit. Critical care time spent 30-74 mins for clinical assessment, reviewing labs/imaging and making clinical decisions. Patient remains in a critical condition, discussed with at bedside. Past Medical Family Social History Past Med/Fam/Surg Hx: No changes since H&P Allergies: Allergies No Known Drug Allergies Allergy (Verified 05/21/20 21:13) Review of Systems ROS: No change since H&P Vital Signs and I&O's Vital Signs: Temperature 97.1 F Pulse Rate [Left] 69 Pulse Rate 51 Respiratory Rate 20 Blood Pressure [Left Arm] 81/47 Blood Pressure 133/79 O2 Sat by Pulse Oximetry 91 Intake and Output: Intake & Output 05/24/20 05/25/20 05/26/20 05/27/20 23:59 23:59 23:59 23:59 Intake Total 4419 / 4419 5867 / 5867 6038 / 6038 2400 / 2400 Output Total 2099 400 / 400 2850 / 2850 300 / 300 Balance 2319 / 2319 5467 / 5467 3188 / 3188 2099 Physical Exam Oriented: Normal Eyes: Normal Ear: Normal Throat: Normal Respiratory: Generalized, Wheezes and Rales Cardiovascular: Normal and Edema (slight LE edema b/l ) Auscultation: Bowel Sounds: Normal Tenderness: Normal Skin: Normal Musculoskeletal: Normal Psychiatric: Normal Mood Description: Calm Affect: Normal Speech Pattern: Clear and Appropriate Laboratory and Diagnostics Result Diagrams: 05/27/20 07:40 05/27/20 07:40 Labs: 05/21/20 21:57 Blood Blood Culture - Final 05/21/20 21:52 Blood Blood Culture - Final Laboratory WBC 9.6 X10^3/uL (3.6-10.0) 05/27/20 07:40 RBC 4.77 X10^6/uL (4.7-6.0) 05/27/20 07:40 Hgb 14.1 g/dL (13.5-18.0) 05/27/20 07:40 Hct 40.9 % (42.0-54.0) L 05/27/20 07:40 MCV 85.6 fL (80.0-100.0) 05/27/20 07:40 MCH 29.6 pg (27.0-34.0) 05/27/20 07:40 MCHC 34.5 g/dL (33.0-35.0) 05/27/20 07:40 RDW 14.1 % (11.6-16.5) 05/27/20 07:40 Plt Count 229 X10^3/uL (150.0-450.0) 05/27/20 07:40 Plt Count Comment Adequate (ADEQUATE) 05/27/20 07:40 MPV 7.9 fL (7.4-11.0) 05/27/20 07:40 Neut % (Auto) 88.8 % (42.0-75.0) H 05/27/20 07:40 Lymph % (Auto) 5.9 % (21.0-51.0) L 05/27/20 07:40 [place] % (Auto) 5.2 % (0.0-13.0) 05/27/20 07:40 Eos % (Auto) 0.0 % (0.9-2.9) L 05/27/20 07:40 Baso % (Auto) 0.1 % (0.2-1.0) L 05/27/20 07:40 Neut # (Auto) 8.5 x10^3/uL (2.2-4.8) H 05/27/20 07:40 Lymph # (Auto) 0.6 X10^3/uL (1.3-2.9) L 05/27/20 07:40 [place] # (Auto) 0.5 x10^3/uL (0.3-0.8) 05/27/20 07:40 Eos # (Auto) 0.0 x10^3/uL (0.0-0.2) 05/27/20 07:40 Baso # (Auto) 0.0 X10^3/uL (0.0-0.1) 05/27/20 07:40 Absolute Nucleated RBC 0.0 /100WBC 05/27/20 07:40 Total Counted 100 05/27/20 07:40 Neutrophils % (Manual) 90 % (39-76) H 05/27/20 07:40 Lymphocytes % (Manual) 9 % (13-43) L 05/27/20 07:40 Monocytes % (Manual) 1 % (4-9) L 05/27/20 07:40 Plt Morphology Comment Normal (NORMAL) 05/27/20 07:40 RBC Morphology Normal (NORMAL) 05/27/20 07:40 PT 13.9 SECONDS (11.8-14.3) 05/22/20 10:30 INR Target Range - 05/22/20 10:30 INR 1.11 (0.8-1.3) 05/22/20 10:30 APTT 101.0 SECONDS (22.9-36.5) H 05/27/20 07:40 PTT Comment - 05/27/20 07:40 D-Dimer 1.01 ug/ml (0.0-0.57) H* 05/21/20 21:16 Sample Site Rr 05/26/20 09:00 ABG pH 7.400 (7.35-7.45) 05/26/20 09:00 ABG pCO2 33.0 mmHg (35.0-45.0) L 05/26/20 09:00 ABG pO2 54.0 mmHg (80.0-100.0) L 05/26/20 09:00 ABG HCO3 20.4 mmol/L (22-26) L 05/26/20 09:00 ABG O2 Saturation 88.0 % (90-100) L 05/26/20 09:00 ABG Base Excess -3.6 mmol/L (-2.0-2.0) L 05/26/20 09:00 Venancio Test Pos 05/26/20 09:00 A-a Gradient 568.0 mmHg 05/26/20 09:00 FiO2 93.0 05/26/20 09:00 Blood Gas Comments Pt stan rx well. llj 05/26/20 09:00 Sodium 144 mmol/L (136-145) 05/27/20 07:40 Corrected Sodium 146 mmol/L (136-145) H 05/27/20 07:40 Potassium 3.3 mmol/L (3.5-5.1) L 05/27/20 07:40 Chloride 109 mmol/L (98-107) H 05/27/20 07:40 Carbon Dioxide 24.6 mmol/L (21-32) 05/27/20 07:40 BUN 44 mg/dL (7-18) H 05/27/20 07:40 Creatinine 2.01 mg/dL (0.70-1.30) H 05/27/20 07:40 Est GFR (MDRD) Af Amer 45 (>60) L 05/27/20 07:40 Est GFR (MDRD) Non-Af 37 (>60) L 05/27/20 07:40 Glucose 165 mg/dL (65-99) H 05/27/20 07:40 POC Glucose (mg/dL) 113 mg/dL (65-99) H 05/27/20 06:22 Hemoglobin A1c 8.5 % 05/23/20 04:30 Lactic Acid 2.1 mmol/L (0.4-2.0) H 05/24/20 08:20 Calcium 7.9 mg/dL (8.5-10.1) L 05/27/20 07:40 Corrected Calcium 9.4 mg/dL (8.5-10.1) 05/27/20 07:40 Magnesium 2.2 mg/dL (1.7-2.9) 05/27/20 07:40 Ferritin 1593 ng/mL (26-388) H 05/21/20 21:16 Total Bilirubin 0.70 mg/dL (0.2-1.0) 05/27/20 07:40 Direct Bilirubin 0.20 mg/dL (0-0.2) 05/24/20 02:45 Indirect Bilirubin 0.30 mg/dL (0.2-0.8) 05/24/20 02:45 AST 52 Units/L (15-37) H 05/27/20 07:40 ALT 61 Units/L (12-78) 05/27/20 07:40 Alkaline Phosphatase 65 Units/L (46-116) 05/27/20 07:40 Troponin I 0.04 ng/mL (0-1.5) 05/22/20 04:30 C-Reactive Protein 65.70 mg/L (0-3.0) H 05/27/20 07:40 B-Natriuretic Peptide 85.9 pg/mL (0-79) H 05/22/20 04:30 Total Protein 5.8 g/dL (6.4-8.2) L 05/27/20 07:40 Albumin 2.1 g/dL (3.4-5.0) L 05/27/20 07:40 Globulin 3.7 g/dL (2.5-4.5) 05/27/20 07:40 Albumin/Globulin Ratio 0.6 Ratio (1.1-2.1) L 05/27/20 07:40 Urine Acetone Negative (NEGATIVE) 05/24/20 11:30 Stool for White Cells Cancelled 05/24/20 15:45 Stl C. diff Tox B Gene Cancelled 05/24/20 15:45 Stl C. diff [id number] Cancelled 05/24/20 15:45 Blood Type O POSITIVE 05/24/20 08:20 Antibody Screen Cancelled 05/24/20 08:20 Plan (1) Pneumonia due to COVID-19 virus: Status: Acute (2) Acute respiratory failure due to COVID-19: Status: Acute (3) Shock due to systemic infection: Status: Acute (4) Elevated d-dimer: Status: Acute (5) Acute on chronic renal failure: Status: Acute Qualifiers: Acute renal failure type: unspecified Chronic kidney disease stage: unspecified stage Qualified Code(s): N17.9 - Acute kidney failure, unspecified; N18.9 - Chronic kidney disease, unspecified (6) Thrombocytopenia: Status: Acute (7) CHF (congestive heart failure): Status: Acute Qualifiers: Heart failure chronicity: chronic Heart failure type: diastolic Qualified Code(s): I50.32 - Chronic diastolic (congestive) heart failure (8) Diabetes: Status: Acute Qualifiers: Diabetes mellitus complication status: without complication Diabetes mellitus mcc insulin use: with mcc use Diabetes mellitus type: type 2 Qualified Code(s): E11.9 - Type 2 diabetes mellitus without complications; Z79.4 - nursing home (current) use of insulin (9) Metabolic acidosis: Status: Acute (10) Diarrhea: Status: Acute Qualifiers: Diarrhea type: unspecified type Qualified Code(s): R19.7 - Diarrhea, unspecified
--- NOTE | 2020-05-27 09:58 | RAD ---
HISTORYSOB, COVID +STUDYCHEST, 1 VIEWCOMPARISONOne day priorTECHNIQUEAP view of the chestFINDINGSCardiac silhouette is stably enlarged. Stable bilateral diffuse airspace disease. Elevated right hemidiaphragm. No pneumothorax. No large pleural effusion.IMPRESSIONNo significant change.Electronically signed by: Per Mas (May 27, 2020 09:57:57)
[2020-05-27] MEDS: HumuLIN R SC PRN ×3 (11:33→20:36)
[2020-05-27] MEDS ORDERED: POTASSIUM CHL 40 MEQ/NS 0.45% 500 ML IV PRN (18:03)
[2020-05-27] MEDS ORDERED: MICRO K EXTEN CAP 10 MEQ PO PRN (18:03)
[2020-05-27] MEDS ORDERED: POTASSIUM CHLORIDE LIQ 20 MEQ UDC PO PRN (18:03)
[2020-05-27] MEDS ORDERED: KLOR-CON PO PRN (18:03)
[2020-05-27] MEDS ORDERED: K-DUR TAB 20 MEQ PO PRN (18:03)
[2020-05-27] MEDS ORDERED: K-RIDER 10 MEQ/NS 100 ML 10 MEQ/100 ML BAG IV PRN (18:03)
[2020-05-27] MEDS ORDERED: POTASSIUM CHL 60 MEQ/NS 0.45% 500 ML IV PRN (18:03)
[2020-05-27] MEDS: SNACK - Diabetic Appropriate PO SCH (20:33)
[2020-05-27] MEDS ORDERED: NS 1000 ML 1,000 ML ONE (20:38)
[2020-05-28] MEDS: ASCORBIC ACID INJ MULTI-DOSE VIAL 1,500 MG in NS 100 ML IV 100 ML IV SCH ×4 (03:22→21:00)
[2020-05-28 03:54] LABS: BASOPHILS % (AUTO) 0.2 % (0.2-1.0); HEMATOCRIT 41.1 % (42.0-54.0); HEMOGLOBIN 14.1 g/dL (13.5-18.0); LYMPHOCYTES # (AUTO) 0.4 X10^3/uL (1.3-2.9); LYMPHOCYTES % (AUTO) 4.6 % (21.0-51.0); MEAN CORPUSCULAR HEMOGLOBIN 29.4 pg (27.0-34.0); MEAN CORPUSCULAR HGB CONC 34.3 g/dL (33.0-35.0); MEAN CORPUSCULAR VOLUME 85.8 fL (80.0-100.0); MEAN PLATELET VOLUME 7.6 fL (7.4-11.0); MONOCYTES # (AUTO) 0.3 x10^3/uL (0.3-0.8); MONOCYTES % (AUTO) 3.8 % (0.0-13.0); NEUTROPHILS # (AUTO) 8.1 x10^3/uL (2.2-4.8); NEUTROPHILS % (AUTO) 91.4 % (42.0-75.0); PLATELET COUNT 241 X10^3/uL (150.0-450.0); WHITE BLOOD COUNT 8.9 X10^3/uL (3.6-10.0)
[2020-05-28 04:02] LABS: ALBUMIN 2.4 g/dL (3.4-5.0); CARBON DIOXIDE 22.1 mmol/L (21-32); COR CA(FOR HYPOALB) 9.3 mg/dL (8.5-10.1); CREATININE 2.23 mg/dL (0.70-1.30); TOTAL PROTEIN 6.2 g/dL (6.4-8.2)
[2020-05-28 05:05] LABS: BAND NEUTROPHILS % 4 % (0-10); PLATELET MORPHOLOGY COMMENT NORMAL (NORMAL)
[2020-05-28] MEDS: ZOSYN VIAL 3.375 GRAMS 3.375 G in NS 100 ML IV + SPIKE MINIBAG* 100 ML IV SCH ×3 (05:46→21:00)
[2020-05-28] MEDS ORDERED: HEPARIN SODIUM INJ 5000 UNITS ONE ×2 (06:18→13:27)
[2020-05-28] MEDS: HumuLIN R SC PRN ×3 (06:35→19:23)
[2020-05-28] MEDS: PULMICORT NEB TX 0.5 MG NEB SCH ×2 (08:20→21:42)
[2020-05-28] MEDS: DUONEB 0.5 MG/3 MG (3 mL) NEB SCH ×4 (08:20→21:42)
[2020-05-28] MEDS: LASIX IVP SCH (09:22)
[2020-05-28] MEDS: SOLU-Medrol 125 MG VIAL IVP SCH ×2 (09:22→21:00)
[2020-05-28] MEDS: PEPCID 20 MG IV PREMIX* 20 MG/50 ML BAG IV SCH (09:22)
[2020-05-28] MEDS: ZINC SULFATE PO SCH (09:23)
[2020-05-28] MEDS: VITAMIN A PO SCH (09:23)
[2020-05-28 10:19] LABS: ABG ALLEN TEST POS; ABG BASE EXCESS -1.4 mmol/L (-2.0-2.0); ABG HCO3 22.8 mmol/L (22-26)
[2020-05-28] MEDS: HEPARIN SODIUM IN D5W 25,000 UNITS/500 ML BAG IV PRN (13:00)
[2020-05-28] MEDS: HEPARIN SODIUM INJ 5000 UNITS IVP ONE ×2 (13:27→13:40)
[2020-05-28] MEDS ORDERED: LANTUS SC ONE ×2 (20:48→20:54)
[2020-05-28] MEDS: SNACK - Diabetic Appropriate PO SCH (20:53)
[2020-05-29] MEDS: HEPARIN SODIUM IN D5W 25,000 UNITS/500 ML BAG IV PRN (00:40)
[2020-05-29 00:45] LABS: CKMB % 2.6 % (<4); CREATINE KINASE MB 4.4 ng/mL (0-4.0); TROPONIN I 0.03 ng/mL (0-1.5)
[2020-05-29] MEDS: HumuLIN R SC PRN ×3 (01:12→22:00)
[2020-05-29] MEDS: ASCORBIC ACID INJ MULTI-DOSE VIAL 1,500 MG in NS 100 ML IV 100 ML IV SCH ×4 (03:51→21:56)
[2020-05-29] MEDS: ZOSYN VIAL 3.375 GRAMS 3.375 G in NS 100 ML IV + SPIKE MINIBAG* 100 ML IV SCH ×3 (06:20→21:57)
[2020-05-29 06:57] LABS: BASOPHILS # (AUTO) 0.1 X10^3/uL (0.0-0.1); BASOPHILS % (AUTO) 0.5 % (0.2-1.0); EOSINOPHILS % (AUTO) 0.1 % (0.9-2.9); HEMATOCRIT 39.6 % (42.0-54.0); HEMOGLOBIN 13.4 g/dL (13.5-18.0); LYMPHOCYTES # (AUTO) 0.6 X10^3/uL (1.3-2.9); MEAN CORPUSCULAR HEMOGLOBIN 29.3 pg (27.0-34.0); MEAN CORPUSCULAR HGB CONC 33.9 g/dL (33.0-35.0); MEAN CORPUSCULAR VOLUME 86.4 fL (80.0-100.0); MEAN PLATELET VOLUME 7.8 fL (7.4-11.0); MONOCYTES # (AUTO) 0.7 x10^3/uL (0.3-0.8); NEUTROPHILS % (AUTO) 88.4 % (42.0-75.0); PLATELET COUNT 237 X10^3/uL (150.0-450.0); RED BLOOD COUNT 4.58 X10^6/uL (4.7-6.0); WHITE BLOOD COUNT 11.3 X10^3/uL (3.6-10.0)
[2020-05-29 07:29] LABS: BAND NEUTROPHILS % 2 % (0-10); PLATELET MORPHOLOGY COMMENT NORMAL (NORMAL)
[2020-05-29 07:33] LABS: ALBUMIN 2.3 g/dL (3.4-5.0); CALCIUM 8.1 mg/dL (8.5-10.1); CARBON DIOXIDE 22.7 mmol/L (21-32); COR CA(FOR HYPOALB) 9.5 mg/dL (8.5-10.1); CREATININE 2.15 mg/dL (0.70-1.30); TOTAL PROTEIN 5.7 g/dL (6.4-8.2)
[2020-05-29 07:42] LABS: CKMB % 2.7 % (<4); CREATINE KINASE MB 3.9 ng/mL (0-4.0); TROPONIN I 0.05 ng/mL (0-1.5)
[2020-05-29] MEDS: DUONEB 0.5 MG/3 MG (3 mL) NEB SCH ×4 (08:50→21:05)
[2020-05-29] MEDS: PULMICORT NEB TX 0.5 MG NEB SCH ×2 (08:50→21:06)
[2020-05-29] MEDS: LASIX IVP SCH (09:00)
[2020-05-29] MEDS: VITAMIN A PO SCH (09:00)
[2020-05-29] MEDS: SOLU-Medrol 125 MG VIAL IVP SCH ×2 (09:00→21:57)
[2020-05-29] MEDS: LANTUS SC SCH (09:00)
[2020-05-29] MEDS: PEPCID 20 MG IV PREMIX* 20 MG/50 ML BAG IV SCH (09:00)
[2020-05-29] MEDS: IMODIUM CAP 2 MG PO PRN (09:13)
[2020-05-29] MEDS: ZINC SULFATE PO SCH (10:55)
[2020-05-29 12:09] LABS: ABG BASE EXCESS -0.1 mmol/L (-2.0-2.0); ABG HCO3 23.9 mmol/L (22-26)
[2020-05-29 12:10] LABS: ABG ALLEN TEST POS
--- NOTE | 2020-05-29 13:02 | RAD ---
HISTORYSOBSTUDYCHEST, 1 VIEWCOMPARISONSeptember 2019FINDINGSThe patient is rotated. The cardiac silhouette is enlarged. Diffuse airspace disease is demonstrated bilaterally. Slight interval progression/worsening on the left cannot excluded. Elevation of the right hemidiaphragm is again noted.IMPRESSIONCardiomegaly.Bilateral airspace disease as discussed above.Electronically signed by: IRAM HART (May 29, 2020 13:01:39)
[2020-05-29 14:45] LABS: CKMB % 2.3 % (<4); TROPONIN I 0.05 ng/mL (0-1.5)
[2020-05-29 14:52] LABS: CREATINE KINASE MB 4.3 ng/mL (0-4.0)
[2020-05-29] MEDS: SNACK - Diabetic Appropriate PO SCH (20:08)
[2020-05-29] MEDS ORDERED: NS 500 ML IV 500 ML IV ONE (21:07)
[2020-05-29] MEDS: ELIQUIS PO SCH (21:56)
[2020-05-30] MEDS: ASCORBIC ACID INJ MULTI-DOSE VIAL 1,500 MG in NS 100 ML IV 100 ML IV SCH ×2 (02:25→10:10)
--- NOTE | 2020-05-30 05:36 | RAD ---
HISTORYSOBSTUDYCHEST, 1 [id number]/27/2020FINDINGSThe trachea is midline. The cardiac silhouette is enlarged, similar to prior exam.. Stable elevation of the right hemidiaphragm with patchy bilateral pulmonary opacities/infiltrates. No pneumothorax.. The bony thorax is stable.IMPRESSIONNo significant interval change.Electronically signed by: Mary Jane Perez (May 30, 2020 05:36:37)
[2020-05-30 05:56] LABS: BASOPHILS % (AUTO) 0.2 % (0.2-1.0); EOSINOPHILS % (AUTO) 0.1 % (0.9-2.9); HEMATOCRIT 39.1 % (42.0-54.0); HEMOGLOBIN 13.3 g/dL (13.5-18.0); LYMPHOCYTES # (AUTO) 0.6 X10^3/uL (1.3-2.9); MEAN CORPUSCULAR HEMOGLOBIN 29.6 pg (27.0-34.0); MEAN CORPUSCULAR HGB CONC 34.2 g/dL (33.0-35.0); MEAN CORPUSCULAR VOLUME 86.8 fL (80.0-100.0); MEAN PLATELET VOLUME 8.1 fL (7.4-11.0); MONOCYTES # (AUTO) 0.4 x10^3/uL (0.3-0.8); MONOCYTES % (AUTO) 3.5 % (0.0-13.0); NEUTROPHILS # (AUTO) 11.5 x10^3/uL (2.2-4.8); NEUTROPHILS % (AUTO) 91.2 % (42.0-75.0); PLATELET COUNT 222 X10^3/uL (150.0-450.0); RED CELL DISTRIBUTION WIDTH 14.2 % (11.6-16.5); WHITE BLOOD COUNT 12.6 X10^3/uL (3.6-10.0)
[2020-05-30 06:10] LABS: ALBUMIN 2.2 g/dL (3.4-5.0); CALCIUM 7.8 mg/dL (8.5-10.1); COR CA(FOR HYPOALB) 9.2 mg/dL (8.5-10.1); CREATININE 1.98 mg/dL (0.70-1.30); TOTAL PROTEIN 5.6 g/dL (6.4-8.2)
[2020-05-30 06:18] LABS: PLATELET MORPHOLOGY COMMENT NORMAL (NORMAL)
[2020-05-30 06:31] LABS: ABG ALLEN TEST POS; ABG BASE EXCESS 1.3 mmol/L (-2.0-2.0); ABG HCO3 25.9 mmol/L (22-26)
[2020-05-30] MEDS: ZOSYN VIAL 3.375 GRAMS 3.375 G in NS 100 ML IV + SPIKE MINIBAG* 100 ML IV SCH ×3 (06:36→21:46)
[2020-05-30] MEDS: HumuLIN R SC PRN ×4 (06:37→20:51)
[2020-05-30] MEDS: PULMICORT NEB TX 0.5 MG NEB SCH ×2 (08:25→20:30)
[2020-05-30] MEDS: DUONEB 0.5 MG/3 MG (3 mL) NEB SCH ×4 (08:25→20:30)
[2020-05-30] MEDS: LANTUS SC SCH (10:10)
[2020-05-30] MEDS: SOLU-Medrol 125 MG VIAL IVP SCH (10:10)
[2020-05-30] MEDS: ZINC SULFATE PO SCH (10:10)
[2020-05-30] MEDS: IMODIUM CAP 2 MG PO PRN (10:41)
[2020-05-30] MEDS: PEPCID 20 MG IV PREMIX* 20 MG/50 ML BAG IV SCH (10:42)
[2020-05-30] MEDS: VITAMIN A PO SCH (10:42)
[2020-05-30] MEDS: LASIX IVP SCH (10:43)
[2020-05-30] MEDS: ELIQUIS PO SCH ×2 (10:44→20:50)
--- NOTE | 2020-05-30 11:44 | PCM.PROG ---
Progress Note - Progress Note for Day of Date of Exam: 05/30/20 - Subjective Subjective: IS A 54 YEAR OLD PATIENT OF OURS WHO WAS ADMITTED ON 05/21 DUE TO COVID-19, PNEUMONIA WITH HYPOXIA. SIGNIFICANT PMH INCLUDES HTN AND DIABETES. HE HAS BEEN RECEIVING AGGRESSIVE RESPIRATORY THERAPY, IV ANTIBIOTICS, AND PULMONARY TOILETING. HE HAS RECEIVED A FIVE DAY COURSE OF REMDESIVIR. TODAY, HE IS ALERT AND ORIENTED, SITTING UP IN BED ON MORNING ROUNDS. HE CONTINUES WITH SHORTNESS OF BREATH, COUGH, AND WEAKNESS TODAY. HE IS ONLY ABLE TO SPEAK A FEW WORDS AT THE TIME WITHOUT BECOMING MODERATELY SHORT OF BREATH. ON EXAMINATION, HEART IS REGULAR IN RATE AND RHYTHM. BILATERAL LUNGS ARE NOTED WITH DIMINISHED LUNG SOUNDS THROUGHOUT. ABDOMEN IS ROUND, SOFT, AND NON-TENDER WITH NORMAL BOWEL SOUNDS NOTED IN ALL QUADRANTS. BILATERAL LOWER EXTREMITIES ARE NOTED WITH 1+ EDEMA. HIS VITALS THIS MORNING ARE: 97.6-64-19-97%-136/84. HE IS CURRENTLY ON NASAL CANNULA AT 2L/MIN. LABS WERE OBTAINED. ABNORMAL LAB VALUES INCLUDE THE FOLLOWING: WBC 12.6, RBC 4.50, HGB 13.3, HCT 39.1, POTASSIUM 3.4, BUN 38, CREATININE 1.98, GLUCOSE 275, CALCIUM 7.8, FERRITIN 1441, CRP 15.00, TOTAL PROTEIN 5.6, ALBUMIN 2.2. ABG THIS MORNING REVEALED: PH 7.420, PC02 40, P02 78, HC03 25.9, 02 SAT 96, BASE EXCESS 1.3, FI02 62. A SPUTUM CULTURE IS PENDING. A CHEST XRAY WAS OBTAINED THIS MORNING AND REVEALED: The trachea is midline. The cardiac silhouette is enlarged, similar to prior exam. Stable elevation of the right hemidiaphragm with patchy bilateral pulmonary opacities/infiltrates. No pneumothorax. The bony thorax is stable. EKG REVEALED: SINUS RHYTHM WITH HR 64. SHE IS CURRENTLY RECEIVING ZOSYN 3.375G IV TID, DUONEBS QID, PULMICORT NEBS BID, PEPCID IV DAILY, PROTONIX 40MG IV BID, HUMULIN R SLIDING SCALE, LANTUS 30 UNITS SC DAILY, ELIQUIS 10MG PO BID, TUSSIONEX 5ML PO Q12H PRN, LASIX 40MG IV DAILY, SOLU-MEDROL 80MG IV Q12H, THE POTASSIUM AND MAGNESIUM PROTOCOLS, MORPHIN 2MG IV Q4H PRN, ATIVAN 1MG IV Q6H PRN, ZOFRAN 4MG IV Q6H PRN, AND ZINC 220MG PO DAILY. HE HAS RECEIVED TWO UNITS OF PLASMA AND WILL RECEIVE A THIRD UNIT WHEN IT IS AVAILABLE. TODAY, WE WILL INCREASE THE SOLU-MEDROL TO Q8H. WE WILL OBTAIN A CHEST CT WITHOUT CONTRAST DUE TO PERSISTENT RESPIRATORY DISTRESS AND COUGH. OTHERWISE, WE PLAN TO FOLLOW UP WITH AM LABS, CHEST XRAY, ABG, AND CONTINUE TO MONITOR. - Past Medical Family Social History Past Med/Fam/Surg Hx: No changes since H&P Allergies: Allergies No Known Drug Allergies Allergy (Verified 05/21/20 21:13) - Review of Systems ROS: No change since H&P - Vital Signs and I&O's Vital Signs: Temperature 97.6 F Pulse Rate [Left] 69 Pulse Rate 64 Respiratory Rate 22 Blood Pressure [Left Arm] 81/47 Blood Pressure 136/84 O2 Sat by Pulse Oximetry 95 Intake and Output: Intake & Output 05/27/20 05/28/20 05/29/20 05/30/20 11:59 11:59 11:59 11:59 Intake Total 5378 / 5378 4374 / 4374 4927 / 4927 3305 / 3305 Output Total 3150 / 3150 1150 / 1150 1200 / 1200 2160 / 2160 Balance 2228 / 2228 3224 / 3224 3727 / 3727 1145 / 1145 - Physical Exam Oriented: Normal Eyes: Normal Ear: Normal Throat: Normal Respiratory: Generalized, Diminished, Rales Cardiovascular: Normal, Edema (slight LE edema b/l) Auscultation: Bowel Sounds: Normal Palpation: Normal Tenderness: Normal Skin: Normal Musculoskeletal: Normal Psychiatric: Normal Mood Description: Calm Affect: Normal Speech Pattern: Clear, Appropriate - Laboratory and Diagnostics Result Diagrams: 05/30/20 04:49 05/30/20 04:49 Labs: 05/28/20 22:24 Sputum - Expectorated Sputum Sputum Culture - Preliminary 05/28/20 22:24 Sputum - Expectorated Sputum - Final 05/21/20 21:57 Blood Blood Culture - Final 05/21/20 21:52 Blood Blood Culture - Final Laboratory WBC 12.6 X10^3/uL (3.6-10.0) H 05/30/20 04:49 RBC 4.50 X10^6/uL (4.7-6.0) L 05/30/20 04:49 Hgb 13.3 g/dL (13.5-18.0) L 05/30/20 04:49 Hct 39.1 % (42.0-54.0) L 05/30/20 04:49 MCV 86.8 fL (80.0-100.0) 05/30/20 04:49 MCH 29.6 pg (27.0-34.0) 05/30/20 04:49 MCHC 34.2 g/dL (33.0-35.0) 05/30/20 04:49 RDW 14.2 % (11.6-16.5) 05/30/20 04:49 Plt Count 222 X10^3/uL (150.0-450.0) 05/30/20 04:49 Plt Count Comment Adequate (ADEQUATE) 05/30/20 04:49 MPV 8.1 fL (7.4-11.0) 05/30/20 04:49 Neut % (Auto) 91.2 % (42.0-75.0) H 05/30/20 04:49 Lymph % (Auto) 5.0 % (21.0-51.0) L 05/30/20 04:49 [place] % (Auto) 3.5 % (0.0-13.0) 05/30/20 04:49 Eos % (Auto) 0.1 % (0.9-2.9) L 05/30/20 04:49 Baso % (Auto) 0.2 % (0.2-1.0) 05/30/20 04:49 Neut # (Auto) 11.5 x10^3/uL (2.2-4.8) H 05/30/20 04:49 Lymph # (Auto) 0.6 X10^3/uL (1.3-2.9) L 05/30/20 04:49 [place] # (Auto) 0.4 x10^3/uL (0.3-0.8) 05/30/20 04:49 Eos # (Auto) 0.0 x10^3/uL (0.0-0.2) 05/30/20 04:49 Baso # (Auto) 0.0 X10^3/uL (0.0-0.1) 05/30/20 04:49 Absolute Nucleated RBC 0.1 /100WBC 05/30/20 04:49 Total Counted 100 05/30/20 04:49 Neutrophils % (Manual) 88 % (39-76) H 05/30/20 04:49 Band Neutrophils % 2 % (0-10) 05/29/20 06:30 Lymphocytes % (Manual) 3 % (13-43) L 05/30/20 04:49 Monocytes % (Manual) 9 % (4-9) 05/30/20 04:49 Plt Morphology Comment Normal (NORMAL) 05/30/20 04:49 RBC Morphology Normal (NORMAL) 05/30/20 04:49 PT 13.9 SECONDS (11.8-14.3) 05/22/20 10:30 INR Target Range - 05/22/20 10:30 INR 1.11 (0.8-1.3) 05/22/20 10:30 APTT 85.2 SECONDS (22.9-36.5) H 05/29/20 21:03 PTT Comment - 05/29/20 21:03 D-Dimer 1.01 ug/ml (0.0-0.57) H* 05/21/20 21:16 Sample Site Rr 05/30/20 06:00 ABG pH 7.420 (7.35-7.45) 05/30/20 06:00 ABG pCO2 40.0 mmHg (35.0-45.0) 05/30/20 06:00 ABG pO2 78.0 mmHg (80.0-100.0) L 05/30/20 06:00 ABG HCO3 25.9 mmol/L (22-26) 05/30/20 06:00 ABG O2 Saturation 96.0 % (90-100) 05/30/20 06:00 ABG Base Excess 1.3 mmol/L (-2.0-2.0) 05/30/20 06:00 Venancio Test Pos 05/30/20 06:00 A-a Gradient 314.0 mmHg 05/30/20 06:00 FiO2 62.0 05/30/20 06:00 Blood Gas Comments Darni well sw 05/30/20 06:00 Sodium 144 mmol/L (136-145) 05/30/20 04:49 Corrected Sodium 148 mmol/L (136-145) H 05/30/20 04:49 Potassium 3.4 mmol/L (3.5-5.1) L 05/30/20 04:49 Chloride 106 mmol/L (98-107) 05/30/20 04:49 Carbon Dioxide 24.0 mmol/L (21-32) 05/30/20 04:49 BUN 38 mg/dL (7-18) H 05/30/20 04:49 Creatinine 1.98 mg/dL (0.70-1.30) H 05/30/20 04:49 Est GFR (MDRD) Af Amer 46 (>60) L 05/30/20 04:49 Est GFR (MDRD) Non-Af 38 (>60) L 05/30/20 04:49 Glucose 275 mg/dL (65-99) H 05/30/20 04:49 POC Glucose (mg/dL) 350 mg/dL (65-99) H 05/29/20 21:02 Hemoglobin A1c 8.5 % 05/23/20 04:30 Lactic Acid 2.1 mmol/L (0.4-2.0) H 05/24/20 08:20 Calcium 7.8 mg/dL (8.5-10.1) L 05/30/20 04:49 Corrected Calcium 9.2 mg/dL (8.5-10.1) 05/30/20 04:49 Magnesium 2.1 mg/dL (1.7-2.9) 05/30/20 04:49 Ferritin 1441 ng/mL (26-388) H 05/30/20 04:49 Total Bilirubin 0.60 mg/dL (0.2-1.0) 05/30/20 04:49 Direct Bilirubin 0.20 mg/dL (0-0.2) 05/24/20 02:45 Indirect Bilirubin 0.30 mg/dL (0.2-0.8) 05/24/20 02:45 AST 32 Units/L (15-37) 05/30/20 04:49 ALT 63 Units/L (12-78) 05/30/20 04:49 Alkaline Phosphatase 66 Units/L (46-116) 05/30/20 04:49 Creatine Kinase 188 Units/L (39-308) 05/29/20 13:49 CK-MB (CK-2) 4.3 ng/mL (0-4.0) H* 05/29/20 13:49 CK/CKMB % Calc 2.3 % (<4) 05/29/20 13:49 Troponin I 0.05 ng/mL (0-1.5) 05/29/20 13:49 C-Reactive Protein 15.00 mg/L (0-3.0) H 05/30/20 04:49 B-Natriuretic Peptide 85.9 pg/mL (0-79) H 05/22/20 04:30 Total Protein 5.6 g/dL (6.4-8.2) L 05/30/20 04:49 Albumin 2.2 g/dL (3.4-5.0) L 05/30/20 04:49 Globulin 3.4 g/dL (2.5-4.5) 05/30/20 04:49 Albumin/Globulin Ratio 0.6 Ratio (1.1-2.1) L 05/30/20 04:49 Urine Acetone Negative (NEGATIVE) 05/24/20 11:30 Stool for White Cells Cancelled 05/24/20 15:45 Stl C. diff Tox B Gene Negative (NEGATIVE) 05/27/20 19:05 Stl C. diff [id number] Negative (NEGATIVE) 05/27/20 19:05 Blood Type O POSITIVE 05/24/20 08:20 Antibody Screen Cancelled 05/24/20 08:20 - Plan (1) Pneumonia due to COVID-19 virus Status: Acute Plan: SUPPLEMENTAL OXYGEN, ZOSYN 3.375G IV TID, DUONEBS QID, PULMICORT NEBS BID, PEPCID IV DAILY, PROTONIX 40MG IV BID, HUMULIN R SLIDING SCALE, LANTUS 30 UNITS SC DAILY, ELIQUIS 10MG PO BID, TUSSIONEX 5ML PO Q12H PRN, LASIX 40MG IV DAILY, SOLU-MEDROL 80MG IV Q12H, THE POTASSIUM AND MAGNESIUM PROTOCOLS, MORPHINE 2MG IV Q4H PRN, ATIVAN 1MG IV Q6H PRN, ZOFRAN 4MG IV Q6H PRN, AND ZINC 220MG PO DAILY (2) Acute respiratory failure due to COVID-19 Status: Acute (3) Hypoxia Status: Acute (4) Diabetes Status: Chronic Qualifiers: Diabetes mellitus type: type 2 Diabetes mellitus snf insulin use: with termination clerk use Diabetes mellitus complication status: without complication Qualified Code(s): E11.9 - Type 2 diabetes mellitus without complications; Z79.4 - [facility]entiary (current) use of insulin (5) CHF (congestive heart failure) Status: Chronic Qualifiers: Heart failure type: unspecified Heart failure chronicity: acute on chronic Qualified Code(s): I50.9 - Heart failure, unspecified (6) Acute renal failure Status: Chronic Qualifiers: Acute renal failure type: unspecified Qualified Code(s): N17.9 - Acute kidney failure, unspecified
[2020-05-30] MEDS: PROTONIX INJ 40 MG VIAL IVP SCH ×2 (12:07→20:51)
--- NOTE | 2020-05-30 13:09 | CT ---
HISTORYSOB, COVID+STUDYCHEST W/O CONCOMPARISONChest radiograph from same dayTECHNIQUEMultiple axial images of the chest were obtained from the thoracic inlet to the upper abdomen without the administration of IV contrast. Dose reduction techniques including Automated Exposure Control (AEC) and adjustment of mA and kV were utilized.FINDINGSThe left thyroid gland appears asymmetrically larger than the right and there is a 1.9 cm low-attenuation nodule on image 8 series 3. The thoracic aorta is normal in caliber without atherosclerotic disease. The pulmonary artery is normal in caliber centrally. The heart is borderline in size. No pericardial effusion. No pathologic adenopathy in the thorax. Lack of contrast limits evaluation. Bilateral gynecomastia. Visualized upper abdomen demonstrates mild perisplenic fluid. Splenomegaly at 16.8 cm craniocaudal. Kidneys are mildly small. No osseous abnormality. Trachea and mainstem bronchi are patent. Multifocal bilateral airspace and ground-glass opacities. Small right pleural effusion. No pneumothorax.IMPRESSIONMultifocal bilateral airspace and ground-glass opacities consistent with pneumonia from covid 19. Small right pleural effusion.Mild ascites.Splenomegaly.Gynecomastia.19 mm left thyroid nodule. Recommend ultrasound.Electronically signed by: Per Mas (May 30, 2020 13:09:17)
[2020-05-30] MEDS: SOLU-Medrol 40 MG VIAL IVP SCH ×2 (15:03→21:45)
[2020-05-30] MEDS: SNACK - Diabetic Appropriate PO SCH (20:50)
[2020-05-31] MEDS: SOLU-Medrol 40 MG VIAL IVP SCH ×2 (05:21→13:54)
[2020-05-31] MEDS: ZOSYN VIAL 3.375 GRAMS 3.375 G in NS 100 ML IV + SPIKE MINIBAG* 100 ML IV SCH ×3 (05:22→21:17)
[2020-05-31 05:31] LABS: ABG ALLEN TEST POS; ABG BASE EXCESS 4.5 mmol/L (-2.0-2.0); ABG HCO3 29.2 mmol/L (22-26)
--- NOTE | 2020-05-31 05:34 | RAD ---
HISTORYSOBSTUDYCHEST, 1 [id number]/28/2020FINDINGSThe trachea is midline. The cardiac silhouette is mildly enlarged, similar to prior exam.. Persistent elevation of the right hemidiaphragm with patchy bilateral pulmonary opacities/infiltrates and right basilar atelectasis/consolidation.. The bony thorax is unremarkable.IMPRESSIONNo appreciable interval change.Electronically signed by: Mary Jane Perez (May 31, 2020 05:34:49)
[2020-05-31 05:37] LABS: BASOPHILS % (AUTO) 0.3 % (0.2-1.0); EOSINOPHILS % (AUTO) 0.1 % (0.9-2.9); HEMOGLOBIN 13.5 g/dL (13.5-18.0); LYMPHOCYTES # (AUTO) 0.5 X10^3/uL (1.3-2.9); LYMPHOCYTES % (AUTO) 4.2 % (21.0-51.0); MEAN CORPUSCULAR HEMOGLOBIN 29.3 pg (27.0-34.0); MEAN CORPUSCULAR HGB CONC 33.7 g/dL (33.0-35.0); MEAN CORPUSCULAR VOLUME 86.8 fL (80.0-100.0); MEAN PLATELET VOLUME 7.6 fL (7.4-11.0); MONOCYTES # (AUTO) 0.2 x10^3/uL (0.3-0.8); MONOCYTES % (AUTO) 1.7 % (0.0-13.0); NEUTROPHILS # (AUTO) 11.5 x10^3/uL (2.2-4.8); NEUTROPHILS % (AUTO) 93.7 % (42.0-75.0); PLATELET COUNT 208 X10^3/uL (150.0-450.0); RED BLOOD COUNT 4.61 X10^6/uL (4.7-6.0); RED CELL DISTRIBUTION WIDTH 14.2 % (11.6-16.5); WHITE BLOOD COUNT 12.2 X10^3/uL (3.6-10.0)
[2020-05-31] MEDS: HumuLIN R SC PRN ×4 (05:37→20:51)
[2020-05-31 05:51] LABS: ALBUMIN 2.5 g/dL (3.4-5.0); CALCIUM 8.1 mg/dL (8.5-10.1); CARBON DIOXIDE 27.5 mmol/L (21-32); COR CA(FOR HYPOALB) 9.3 mg/dL (8.5-10.1); CREATININE 1.79 mg/dL (0.70-1.30); TOTAL PROTEIN 5.9 g/dL (6.4-8.2)
[2020-05-31 06:08] LABS: PLATELET MORPHOLOGY COMMENT NORMAL (NORMAL)
[2020-05-31] MEDS: ELIQUIS PO SCH ×2 (08:36→20:50)
[2020-05-31] MEDS: PEPCID 20 MG IV PREMIX* 20 MG/50 ML BAG IV SCH (08:37)
[2020-05-31] MEDS: PROTONIX INJ 40 MG VIAL IVP SCH ×2 (08:37→20:51)
[2020-05-31] MEDS: LASIX IVP SCH (08:37)
[2020-05-31] MEDS: ZINC SULFATE PO SCH (08:38)
[2020-05-31] MEDS: LANTUS SC SCH (08:38)
[2020-05-31] MEDS: DUONEB 0.5 MG/3 MG (3 mL) NEB SCH ×4 (09:15→20:10)
[2020-05-31] MEDS: PULMICORT NEB TX 0.5 MG NEB SCH ×2 (09:15→20:10)
[2020-05-31] MEDS ORDERED: LANTUS SC ONE (10:17)
--- NOTE | 2020-05-31 11:53 | US ---
HISTORYLEFT THYROID MASS, COVID +STUDYTHYROID ultrasoundCOMPARISONNoneTECHNIQUEMultiple grayscale and color-flow Doppler images of the thyroid were obtained.FINDINGSRight lobe measures 3.6 x 1.2 x 1.7 cm. Left lobe measures 5.0 x 3.0 x 3.0 cm. Thyr oid echotexture is slightly heterogeneous. In the right lobe there is a 7 x 6 x 3 mm hypoechoic well- circumscribed nodule.Multiple nodules are suggested in the left lobe. Cyst with possible macro calcif ication in the wall is seen measuring 1.5 x 1.1 x 1.5 cm. Fairly homogeneous well-circumscribed isoin tense nodule in the left lobe measures 2.5 x 2.0 x 2.0 cm. A more heterogeneous, mixed solid and cyst ic well-circumscribed nodule is seen without calcifications measuring 2.4 x 1.4 x 1.6 cm.IMPRESSIONMu ltiple thyroid nodules. Largest nodule in the left lobe is isoechoic and homogeneous measuring 2.5 cm in greatest dimension. TI-RADS level 3. FNA is suggested. Consider FNA of the other 2.4 cm nodule in the left lobe at the same time, also.Electronically signed by: Hubert Pastor (May 31, 2020 11:53:0 0)
--- NOTE | 2020-05-31 13:11 | PCM.PROG ---
Progress Note - Progress Note for Day of Date of Exam: 05/31/20 - Subjective Subjective: IS BEING TREATED FOR COVID-19, PNEUMONIA WITH HYPOXIA. SIGNIFICANT PMH INCLUDES HTN AND DIABETES. HE HAS BEEN RECEIVING AGGRESSIVE RESPIRATORY THERAPY, IV ANTIBIOTICS, AND PULMONARY TOILETING. HE HAS RECEIVED A FIVE DAY COURSE OF REMDESIVIR. TODAY, HE IS ALERT AND ORIENTED, SITTING UP IN BED ON MORNING ROUNDS. HE CONTINUES WITH SHORTNESS OF BREATH, COUGH, AND WEAKNESS. HE REPORTS SLIGHT IMPROVEMENT IN SYMPTOMS SINCE ONE DAY PRIOR. HE IS CURRENTLY USING HEATED HIGH FLOW OXYGEN TO MAINTAIN HIS OXYGEN SATURATIONS. ON EXAMINATION, HEART IS REGULAR IN RATE AND RHYTHM. BILATERAL LUNGS ARE NOTED WITH DIMINISHED LUNG SOUNDS THROUGHOUT. ABDOMEN IS ROUND, SOFT, AND NON-TENDER WITH NORMAL BOWEL SOUNDS NOTED IN ALL QUADRANTS. BILATERAL LOWER EXTREMITIES ARE NOTED WITH 1+ EDEMA. HIS VITALS THIS MORNING ARE: 97.9-62-26-89%HHF-157/90. LABS WERE OBTAINED. ABNORMAL LAB VALUES INCLUDE THE FOLLOWING: WBC 12.2, RBC 4.61, HCT 40.0, BUN 34, CREATININE 1.79, GLUCOSE 351, CALCIUM 8.1, CRP 10.50, TOTAL PROTEIN 5.9, ALBUMIN 2.5. ABG THIS MORNING REVEALED: PH 7.440, PC02 43, P02 56, HC03 29.2, 02 SAT 90, FI02 41. A SPUTUM CULTURE IS PENDING. A CHEST XRAY WAS OBTAINED THIS MORNING AND REVEALED: The trachea is midline. The cardiac silhouette is mildly enlarged, similar to prior exam. Persistent elevation of the right hemidiaphragm with patchy bilateral pulmonary opacities/infiltrates and right basilar atelectasis/consolidation. The bony thorax is unremarkable. WE OBTAINED A CHEST CT WITHOUT CONTRAST. IT REVEALED: Multifocal bilateral airspace and ground-glass opacities consistent with pneumonia from covid 19. Small right pleural effusion. Mild ascites. Splenomegaly. Gynecomastia. 19 mm left thyroid nodule. Recommend ultrasound. HE IS CURRENTLY RECEIVING ZOSYN 3.375G IV TID, DUONEBS QID, PULMICORT NEBS BID, PEPCID IV DAILY, PROTONIX 40MG IV BID, HUMULIN R SLIDING SCALE, LANTUS 30 UNITS SC DAILY, ELIQUIS 10MG PO BID, TUSSIONEX 5ML PO Q12H PRN, LASIX 40MG IV DAILY, SOLU-MEDROL 80MG IV Q8H, THE POTASSIUM AND MAGNESIUM PROTOCOLS, MORPHIN 2MG IV Q4H PRN, ATIVAN 1MG IV Q6H PRN, ZOFRAN 4MG IV Q6H PRN, AND ZINC 220MG PO DAILY. HE HAS RECEIVED THREE UNITS OF PLASMA. WE WILL OBTAIN A THYROID ULTRASOUND TODAY. WE WILL CHANGE SOLU-MEDROL TO TWICE A DAY AT 0600 AND 1400. WE WILL ALSO INCREASE LANTUS TO 40 UNITS SC DAILY. OTHERWISE, WE PLAN TO FOLLOW UP WITH AM LABS, CHEST XRAY, ABG, AND CONTINUE TO MONITOR. - Past Medical Family Social History Past Med/Fam/Surg Hx: No changes since H&P Allergies: Allergies No Known Drug Allergies Allergy (Verified 05/21/20 21:13) - Review of Systems ROS: No change since H&P - Vital Signs and I&O's Vital Signs: Temperature 97.9 F Pulse Rate [Left] 69 Pulse Rate 62 Respiratory Rate 23 Blood Pressure [Left Arm] 81/47 Blood Pressure 161/92 O2 Sat by Pulse Oximetry 91 Intake and Output: Intake & Output 05/29/20 05/30/20 05/31/20 06/01/20 11:59 11:59 11:59 11:59 Intake Total 4927 / 4927 3305 / 3305 3432 / 3432 Output Total 1200 / 1200 2160 / 2160 5825 / 5825 Balance 3727 / 3727 1145 / 1145 -2393 / -2393 - Physical Exam Oriented: Normal Eyes: Normal Ear: Normal Throat: Normal Respiratory: Generalized, Diminished Cardiovascular: Normal, Edema (slight LE edema b/l) Auscultation: Bowel Sounds: Normal Palpation: Normal Tenderness: Normal Skin: Normal Musculoskeletal: Normal Psychiatric: Normal Mood Description: Calm Affect: Normal Speech Pattern: Clear, Appropriate - Laboratory and Diagnostics Result Diagrams: 05/31/20 05:06 05/31/20 05:06 Labs: 05/28/20 22:24 Sputum - Expectorated Sputum Sputum Culture - Final 05/28/20 22:24 Sputum - Expectorated Sputum - Final 05/21/20 21:57 Blood Blood Culture - Final 05/21/20 21:52 Blood Blood Culture - Final Laboratory WBC 12.2 X10^3/uL (3.6-10.0) H 05/31/20 05:06 RBC 4.61 X10^6/uL (4.7-6.0) L 05/31/20 05:06 Hgb 13.5 g/dL (13.5-18.0) 05/31/20 05:06 Hct 40.0 % (42.0-54.0) L 05/31/20 05:06 MCV 86.8 fL (80.0-100.0) 05/31/20 05:06 MCH 29.3 pg (27.0-34.0) 05/31/20 05:06 MCHC 33.7 g/dL (33.0-35.0) 05/31/20 05:06 RDW 14.2 % (11.6-16.5) 05/31/20 05:06 Plt Count 208 X10^3/uL (150.0-450.0) 05/31/20 05:06 Plt Count Comment Adequate (ADEQUATE) 05/31/20 05:06 MPV 7.6 fL (7.4-11.0) 05/31/20 05:06 Neut % (Auto) 93.7 % (42.0-75.0) H 05/31/20 05:06 Lymph % (Auto) 4.2 % (21.0-51.0) L 05/31/20 05:06 [place] % (Auto) 1.7 % (0.0-13.0) 05/31/20 05:06 Eos % (Auto) 0.1 % (0.9-2.9) L 05/31/20 05:06 Baso % (Auto) 0.3 % (0.2-1.0) 05/31/20 05:06 Neut # (Auto) 11.5 x10^3/uL (2.2-4.8) H 05/31/20 05:06 Lymph # (Auto) 0.5 X10^3/uL (1.3-2.9) L 05/31/20 05:06 [place] # (Auto) 0.2 x10^3/uL (0.3-0.8) L 05/31/20 05:06 Eos # (Auto) 0.0 x10^3/uL (0.0-0.2) 05/31/20 05:06 Baso # (Auto) 0.0 X10^3/uL (0.0-0.1) 05/31/20 05:06 Absolute Nucleated RBC 0.1 /100WBC 05/31/20 05:06 Total Counted 100 05/31/20 05:06 Neutrophils % (Manual) 94 % (39-76) H 05/31/20 05:06 Band Neutrophils % 2 % (0-10) 05/29/20 06:30 Lymphocytes % (Manual) 4 % (13-43) L 05/31/20 05:06 Monocytes % (Manual) 2 % (4-9) L 05/31/20 05:06 Plt Morphology Comment Normal (NORMAL) 05/31/20 05:06 RBC Morphology Normal (NORMAL) 05/31/20 05:06 PT 13.9 SECONDS (11.8-14.3) 05/22/20 10:30 INR Target Range - 05/22/20 10:30 INR 1.11 (0.8-1.3) 05/22/20 10:30 APTT 85.2 SECONDS (22.9-36.5) H 05/29/20 21:03 PTT Comment - 05/29/20 21:03 D-Dimer 1.01 ug/ml (0.0-0.57) H* 05/21/20 21:16 Sample Site Rr 05/31/20 05:25 ABG pH 7.440 (7.35-7.45) 05/31/20 05:25 ABG pCO2 43.0 mmHg (35.0-45.0) 05/31/20 05:25 ABG pO2 56.0 mmHg (80.0-100.0) L 05/31/20 05:25 ABG HCO3 29.2 mmol/L (22-26) H 05/31/20 05:25 ABG O2 Saturation 90.0 % (90-100) 05/31/20 05:25 ABG Base Excess 4.5 mmol/L (-2.0-2.0) H 05/31/20 05:25 Venancio Test Pos 05/31/20 05:25 A-a Gradient 183.0 mmHg 05/31/20 05:25 FiO2 41.0 05/31/20 05:25 Blood Gas Comments Darin well ae 05/31/20 05:25 Sodium 142 mmol/L (136-145) 05/31/20 05:06 Corrected Sodium 148 mmol/L (136-145) H 05/31/20 05:06 Potassium 3.6 mmol/L (3.5-5.1) 05/31/20 05:06 Chloride 106 mmol/L (98-107) 05/31/20 05:06 Carbon Dioxide 27.5 mmol/L (21-32) 05/31/20 05:06 BUN 34 mg/dL (7-18) H 05/31/20 05:06 Creatinine 1.79 mg/dL (0.70-1.30) H 05/31/20 05:06 Est GFR (MDRD) Af Amer 51 (>60) L 05/31/20 05:06 Est GFR (MDRD) Non-Af 42 (>60) L 05/31/20 05:06 Glucose 351 mg/dL (65-99) H 05/31/20 05:06 POC Glucose (mg/dL) 281 mg/dL (65-99) H 05/31/20 11:04 Hemoglobin A1c 8.5 % 05/23/20 04:30 Lactic Acid 2.1 mmol/L (0.4-2.0) H 05/24/20 08:20 Calcium 8.1 mg/dL (8.5-10.1) L 05/31/20 05:06 Corrected Calcium 9.3 mg/dL (8.5-10.1) 05/31/20 05:06 Magnesium 2.1 mg/dL (1.7-2.9) 05/30/20 04:49 Ferritin 1441 ng/mL (26-388) H 05/30/20 04:49 Total Bilirubin 0.80 mg/dL (0.2-1.0) 05/31/20 05:06 Direct Bilirubin 0.20 mg/dL (0-0.2) 05/24/20 02:45 Indirect Bilirubin 0.30 mg/dL (0.2-0.8) 05/24/20 02:45 AST 25 Units/L (15-37) 05/31/20 05:06 ALT 70 Units/L (12-78) 05/31/20 05:06 Alkaline Phosphatase 77 Units/L (46-116) 05/31/20 05:06 Creatine Kinase 188 Units/L (39-308) 05/29/20 13:49 CK-MB (CK-2) 4.3 ng/mL (0-4.0) H* 05/29/20 13:49 CK/CKMB % Calc 2.3 % (<4) 05/29/20 13:49 Troponin I 0.05 ng/mL (0-1.5) 05/29/20 13:49 C-Reactive Protein 10.50 mg/L (0-3.0) H 05/31/20 05:06 B-Natriuretic Peptide 85.9 pg/mL (0-79) H 05/22/20 04:30 Total Protein 5.9 g/dL (6.4-8.2) L 05/31/20 05:06 Albumin 2.5 g/dL (3.4-5.0) L 05/31/20 05:06 Globulin 3.4 g/dL (2.5-4.5) 05/31/20 05:06 Albumin/Globulin Ratio 0.7 Ratio (1.1-2.1) L 05/31/20 05:06 Urine Acetone Negative (NEGATIVE) 05/24/20 11:30 Stool for White Cells Cancelled 05/24/20 15:45 Stl C. diff Tox B Gene Negative (NEGATIVE) 05/27/20 19:05 Stl C. diff [id number]-NAP1-BI Negative (NEGATIVE) 05/27/20 19:05 Blood Type O POSITIVE 05/24/20 08:20 Antibody Screen Cancelled 05/24/20 08:20 - Plan (1) Pneumonia due to COVID-19 virus Status: Acute Plan: SUPPLEMENTAL OXYGEN, ZOSYN 3.375G IV TID, DUONEBS QID, PULMICORT NEBS BID, PEPCID IV DAILY, PROTONIX 40MG IV BID, HUMULIN R SLIDING SCALE, LANTUS 40 UNITS SC DAILY, ELIQUIS 10MG PO BID, TUSSIONEX 5ML PO Q12H PRN, LASIX 40MG IV DAILY, SOLU-MEDROL 80MG IV AT 0600 AND 1400, THE POTASSIUM AND MAGNESIUM PROTOCOLS, MORPHINE 2MG IV Q4H PRN, ATIVAN 1MG IV Q6H PRN, ZOFRAN 4MG IV Q6H PRN, AND ZINC 220MG PO DAILY (2) Acute respiratory failure due to COVID-19 Status: Acute (3) Hypoxia Status: Acute (4) Thyroid nodule Status: Acute Plan: OBTAIN THYROID ULTRASOUND (5) Diabetes Status: Chronic Qualifiers: Diabetes mellitus type: type 2 Diabetes mellitus prison insulin use: with terminal makeup operator use Diabetes mellitus complication status: without complication Qualified Code(s): E11.9 - Type 2 diabetes mellitus without complications; Z79.4 - intermediate manager (current) use of insulin (6) CHF (congestive heart failure) Status: Chronic Qualifiers: Heart failure type: unspecified Heart failure chronicity: acute on chronic Qualified Code(s): I50.9 - Heart failure, unspecified (7) Acute renal failure Status: Chronic Qualifiers: Acute renal failure type: unspecified Qualified Code(s): N17.9 - Acute kidney failure, unspecified
[2020-05-31] MEDS: DIFLUCAN 200 MG IV PREMIX* 200 MG/100 ML BAG IV SCH (13:54)
[2020-05-31] MEDS ORDERED: NS 100 ML IV 100 ML IV ONE (19:28)
[2020-05-31] MEDS ORDERED: APRESOLINE INJ 20 MG VIAL IVP ONE (19:48)
[2020-05-31] MEDS ORDERED: APRESOLINE INJ 20 MG VIAL ONE (19:51)
[2020-05-31] MEDS ORDERED: SNACK - Diabetic Appropriate PO SCH (20:00)
[2020-05-31] MEDS: SNACK - Diabetic Appropriate PO SCH (20:46)
[2020-05-31] MEDS: COREG TAB 3.125 MG PO SCH ×2 (20:48→22:14)
[2020-06-01] MEDS: SOLU-Medrol 40 MG VIAL IVP SCH ×2 (05:06→14:52)
[2020-06-01] MEDS: ZOSYN VIAL 3.375 GRAMS 3.375 G in NS 100 ML IV + SPIKE MINIBAG* 100 ML IV SCH (05:06)
--- NOTE | 2020-06-01 05:22 | RAD ---
HISTORYSOBSTUDYCHEST, 1 [id number] trachea is midline. The cardiac silhouette is stable in contour in size. Bilateral pulmonary opacities/infiltrates not appreciable change. Right hemidiaphragm elevation and basilar atelectasis/consolidation stable. The bony thorax is unremarkable.IMPRESSIONNo appreciable interval change.Electronically signed by: Mary Jane Perez (Jun 01, 2020 05:21:55)
[2020-06-01] MEDS: HumuLIN R SC PRN ×4 (05:36→22:11)
[2020-06-01 05:52] LABS: ABG BASE EXCESS 7.4 mmol/L (-2.0-2.0)
[2020-06-01 05:53] LABS: ABG ALLEN TEST POS; FRACTIONATED INSPIRED OXYGEN 41
[2020-06-01] MEDS ORDERED: NS 250 ML IV 250 ML IV ONE (06:30)
[2020-06-01 06:59] LABS: BASOPHILS # (AUTO) 0.1 X10^3/uL (0.0-0.1); BASOPHILS % (AUTO) 0.5 % (0.2-1.0); HEMATOCRIT 42.7 % (42.0-54.0); HEMOGLOBIN 14.4 g/dL (13.5-18.0); LYMPHOCYTES # (AUTO) 0.7 X10^3/uL (1.3-2.9); LYMPHOCYTES % (AUTO) 5.1 % (21.0-51.0); MEAN CORPUSCULAR HEMOGLOBIN 29.2 pg (27.0-34.0); MEAN CORPUSCULAR HGB CONC 33.9 g/dL (33.0-35.0); MEAN CORPUSCULAR VOLUME 86.2 fL (80.0-100.0); MEAN PLATELET VOLUME 7.5 fL (7.4-11.0); MONOCYTES # (AUTO) 0.4 x10^3/uL (0.3-0.8); MONOCYTES % (AUTO) 2.6 % (0.0-13.0); NEUTROPHILS # (AUTO) 12.5 x10^3/uL (2.2-4.8); NEUTROPHILS % (AUTO) 91.8 % (42.0-75.0); PLATELET COUNT 196 X10^3/uL (150.0-450.0); RED BLOOD COUNT 4.95 X10^6/uL (4.7-6.0); RED CELL DISTRIBUTION WIDTH 14.4 % (11.6-16.5); WHITE BLOOD COUNT 13.6 X10^3/uL (3.6-10.0)
[2020-06-01 07:13] LABS: ALANINE AMINOTRANSFERASE 65 Units/L (12-78); ALBUMIN 2.7 g/dL (3.4-5.0); ALKALINE PHOSPHATASE 75 Units/L (46-116); ASPARTATE AMINO TRANSFERASE 28 Units/L (15-37); BLOOD UREA NITROGEN 34 mg/dL (7-18); CALCIUM 8.4 mg/dL (8.5-10.1); CARBON DIOXIDE 28.5 mmol/L (21-32); CHLORIDE 105 mmol/L (98-107); COR CA(FOR HYPOALB) 9.4 mg/dL (8.5-10.1); COR NA(FOR HYPERGLY) 145 mmol/L (136-145); CREATININE 1.52 mg/dL (0.70-1.30); SODIUM 142 mmol/L (136-145); TOTAL PROTEIN 6.2 g/dL (6.4-8.2); eGFR NON BLACK RACES 51 (>60)
[2020-06-01 07:34] LABS: BAND NEUTROPHILS % 6 % (0-10); PLATELET MORPHOLOGY COMMENT NORMAL (NORMAL)
[2020-06-01] MEDS: LASIX IVP SCH (07:59)
[2020-06-01] MEDS: PEPCID 20 MG IV PREMIX* 20 MG/50 ML BAG IV SCH (07:59)
[2020-06-01] MEDS: PROTONIX INJ 40 MG VIAL IVP SCH ×2 (07:59→20:54)
[2020-06-01] MEDS: COREG TAB 3.125 MG PO SCH (08:46)
[2020-06-01] MEDS: DIFLUCAN 200 MG IV PREMIX* 200 MG/100 ML BAG IV SCH (08:47)
[2020-06-01] MEDS: LANTUS SC SCH (08:48)
[2020-06-01] MEDS: ELIQUIS PO SCH ×2 (08:48→20:54)
[2020-06-01] MEDS: ZINC SULFATE PO SCH (08:48)
[2020-06-01] MEDS: PULMICORT NEB TX 0.5 MG NEB SCH ×2 (09:40→20:05)
[2020-06-01] MEDS: DUONEB 0.5 MG/3 MG (3 mL) NEB SCH ×4 (09:40→20:05)
[2020-06-01] MEDS: COREG TAB 6.25 MG PO SCH ×2 (10:05→20:53)
[2020-06-01] MEDS ORDERED: COREG TAB 3.125 MG ONE (10:05)
--- NOTE | 2020-06-01 13:48 | PCM.PROG ---
Progress Note - Progress Note for Day of Date of Exam: 06/01/20 - Subjective Subjective: IS BEING TREATED FOR COVID-19, PNEUMONIA WITH HYPOXIA. SIGNIFICANT PMH INCLUDES HTN AND DIABETES. HE HAS BEEN RECEIVING AGGRESSIVE RESPIRATORY THERAPY, IV ANTIBIOTICS, AND PULMONARY TOILETING. HE HAS RECEIVED A FIVE DAY COURSE OF REMDESIVIR. TODAY, HE IS ALERT AND ORIENTED, SITTING UP IN BED ON MORNING ROUNDS. HE CONTINUES WITH SHORTNESS OF BREATH, COUGH, AND WEAKNESS. HE REPORTS SLIGHT IMPROVEMENT IN SYMPTOMS SINCE ONE DAY PRIOR. HE CONTINUES TO USE HEATED HIGH FLOW OXYGEN TO MAINTAIN HIS OXYGEN SATURATIONS. STAFF REPORTS THAT HIS BLOOD PRESSURE HAS BEEN CONSISTENTLY ELEVATED THROUGHOUT THE NIGHT. ON EXAMINATION, HEART IS REGULAR IN RATE AND RHYTHM. BILATERAL LUNGS ARE NOTED WITH DIMINISHED LUNG SOUNDS THROUGHOUT. ABDOMEN IS ROUND, SOFT, AND NON-TENDER WITH NORMAL BOWEL SOUNDS NOTED IN ALL QUADRANTS. BILATERAL LOWER EXTREMITIES ARE NOTED WITH TRACE EDEMA. HIS VITALS THIS MORNING ARE: 97.9-58-20-93%NC-161/96. LABS WERE OBTAINED. ABNORMAL LAB VALUES INCLUDE THE FOLLOWING: WBC 13.6, BUN 34, CREATININE 1.52, GLUCOSE 213, CALCIUM 8.4, TOTAL BILIRUBIN 1.10, CRP 7.80, TOTAL PROTEIN 6.2, ALBUMIN 2.7. ABG THIS MORNING REVEALED: PH 7.470, PC02 44, P02 66, HC03 32, 02 SAT 94, FI02 41. SPUTUM CULTURE REPORTS GROWTH OF MODERATE YEAST. A CHEST XRAY WAS OBTAINED THIS MORNING AND REVEALED: The trachea is midline. The cardiac silhouette is stable in contour in size. Bilateral pulmonary opacities/infiltrates not appreciable change. Right hemidiaphragm elevation and basilar atelectasis/consolidation stable. The bony thorax is unremarkable. HE IS CURRENTLY RECEIVING ZOSYN 3.375G IV TID, DUONEBS QID, PULMICORT NEBS BID, PEPCID IV DAILY, PROTONIX 40MG IV BID, HUMULIN R SLIDIN G SCALE, LANTUS 40 UNITS SC DAILY, ELIQUIS 10MG PO BID, TUSSIONEX 5ML PO Q12H PRN, LASIX 40MG IV DAILY, SOLU-MEDROL 80MG IV BID, THE POTASSIUM AND MAGNESIUM PROTOCOLS, MORPHINE 2MG IV Q4H PRN, ATIVAN 1MG IV Q6H PRN, ZOFRAN 4MG IV Q6H PRN, AND ZINC 220MG PO DAILY. HE HAS RECEIVED THREE UNITS OF CONVALESCENT PLASMA. WE ADDED DIFLUCAN YESTERDAY DUE TO GROWTH OF YEAST. TODAY, WE WILL ADD COREG 6.25MG PO BID, LISINOPRIL 10MG PO HS, AND AMLODIPINE 5MG PO HS DUE TO ELEVATED BLOOD PRESSURE. OTHERWISE, WE PLAN TO FOLLOW UP WITH AM LABS, CHEST XRAY, ABG, AND CONTINUE TO MONITOR. - Past Medical Family Social History Past Med/Fam/Surg Hx: No changes since H&P Allergies: Allergies No Known Drug Allergies Allergy (Verified 05/21/20 21:13) - Review of Systems ROS: No change since H&P - Vital Signs and I&O's Vital Signs: Temperature 97.9 F Pulse Rate [Left] 69 Pulse Rate 69 Respiratory Rate 23 Blood Pressure [Left Arm] 81/47 Blood Pressure 141/90 O2 Sat by Pulse Oximetry 93 Intake and Output: Intake & Output 05/30/20 05/31/20 06/01/20 06/02/20 11:59 11:59 11:59 11:59 Intake Total 3305 / 3305 3432 / 3432 4440 / 4440 Output Total 2160 / 2160 5825 / 5825 5050 / 5050 Balance 1145 / 1145 -2393 / -2393 -610 / -610 - Physical Exam Oriented: Normal Eyes: Normal Ear: Normal Throat: Normal Respiratory: Generalized, Diminished Cardiovascular: Normal, Edema (slight LE edema b/l) Auscultation: Bowel Sounds: Normal Palpation: Normal Tenderness: Normal Skin: Normal Musculoskeletal: Normal Psychiatric: Normal Mood Description: Calm Affect: Normal Speech Pattern: Clear, Appropriate - Laboratory and Diagnostics Result Diagrams: 06/01/20 06:45 06/01/20 06:45 Labs: 05/28/20 22:24 Sputum - Expectorated Sputum Sputum Culture - Final 05/28/20 22:24 Sputum - Expectorated Sputum - Final 05/21/20 21:57 Blood Blood Culture - Final 05/21/20 21:52 Blood Blood Culture - Final Laboratory WBC 13.6 X10^3/uL (3.6-10.0) H 06/01/20 06:45 RBC 4.95 X10^6/uL (4.7-6.0) 06/01/20 06:45 Hgb 14.4 g/dL (13.5-18.0) 06/01/20 06:45 Hct 42.7 % (42.0-54.0) 06/01/20 06:45 MCV 86.2 fL (80.0-100.0) 06/01/20 06:45 MCH 29.2 pg (27.0-34.0) 06/01/20 06:45 MCHC 33.9 g/dL (33.0-35.0) 06/01/20 06:45 RDW 14.4 % (11.6-16.5) 06/01/20 06:45 Plt Count 196 X10^3/uL (150.0-450.0) 06/01/20 06:45 Plt Count Comment Adequate (ADEQUATE) 06/01/20 06:45 MPV 7.5 fL (7.4-11.0) 06/01/20 06:45 Neut % (Auto) 91.8 % (42.0-75.0) H 06/01/20 06:45 Lymph % (Auto) 5.1 % (21.0-51.0) L 06/01/20 06:45 [place] % (Auto) 2.6 % (0.0-13.0) 06/01/20 06:45 Eos % (Auto) 0.0 % (0.9-2.9) L 06/01/20 06:45 Baso % (Auto) 0.5 % (0.2-1.0) 06/01/20 06:45 Neut # (Auto) 12.5 x10^3/uL (2.2-4.8) H 06/01/20 06:45 Lymph # (Auto) 0.7 X10^3/uL (1.3-2.9) L 06/01/20 06:45 [place] # (Auto) 0.4 x10^3/uL (0.3-0.8) 06/01/20 06:45 Eos # (Auto) 0.0 x10^3/uL (0.0-0.2) 06/01/20 06:45 Baso # (Auto) 0.1 X10^3/uL (0.0-0.1) 06/01/20 06:45 Absolute Nucleated RBC 0.1 /100WBC 06/01/20 06:45 Total Counted 100 06/01/20 06:45 Neutrophils % (Manual) 84 % (39-76) H 06/01/20 06:45 Band Neutrophils % 6 % (0-10) 06/01/20 06:45 Lymphocytes % (Manual) 4 % (13-43) L 06/01/20 06:45 Monocytes % (Manual) 6 % (4-9) 06/01/20 06:45 Plt Morphology Comment Normal (NORMAL) 06/01/20 06:45 RBC Morphology Normal (NORMAL) 06/01/20 06:45 PT 13.9 SECONDS (11.8-14.3) 05/22/20 10:30 INR Target Range - 05/22/20 10:30 INR 1.11 (0.8-1.3) 05/22/20 10:30 APTT 85.2 SECONDS (22.9-36.5) H 05/29/20 21:03 PTT Comment - 05/29/20 21:03 D-Dimer 1.01 ug/ml (0.0-0.57) H* 05/21/20 21:16 Sample Site Rr 06/01/20 05:30 ABG pH 7.470 (7.35-7.45) H 06/01/20 05:30 ABG pCO2 44.0 mmHg (35.0-45.0) 06/01/20 05:30 ABG pO2 66.0 mmHg (80.0-100.0) L 06/01/20 05:30 ABG HCO3 32.0 mmol/L (22-26) H* 06/01/20 05:30 ABG O2 Saturation 94.0 % (90-100) 06/01/20 05:30 ABG Base Excess 7.4 mmol/L (-2.0-2.0) H 06/01/20 05:30 Venancio Test Pos 06/01/20 05:30 A-a Gradient 171.0 mmHg 06/01/20 05:30 FiO2 41 06/01/20 05:30 Blood Gas Comments Pt stan well. cdn 06/01/20 05:30 Sodium 142 mmol/L (136-145) 06/01/20 06:45 Corrected Sodium 145 mmol/L (136-145) 06/01/20 06:45 Potassium 3.7 mmol/L (3.5-5.1) 06/01/20 06:45 Chloride 105 mmol/L (98-107) 06/01/20 06:45 Carbon Dioxide 28.5 mmol/L (21-32) 06/01/20 06:45 BUN 34 mg/dL (7-18) H 06/01/20 06:45 Creatinine 1.52 mg/dL (0.70-1.30) H 06/01/20 06:45 Est GFR (MDRD) Af Amer > 60 (>60) 06/01/20 06:45 Est GFR (MDRD) Non-Af 51 (>60) L 06/01/20 06:45 Glucose 213 mg/dL (65-99) H 06/01/20 06:45 POC Glucose (mg/dL) 272 mg/dL (65-99) H 06/01/20 10:58 Hemoglobin A1c 8.5 % 05/23/20 04:30 Lactic Acid 2.1 mmol/L (0.4-2.0) H 05/24/20 08:20 Calcium 8.4 mg/dL (8.5-10.1) L 06/01/20 06:45 Corrected Calcium 9.4 mg/dL (8.5-10.1) 06/01/20 06:45 Magnesium 2.1 mg/dL (1.7-2.9) 05/30/20 04:49 Ferritin 1441 ng/mL (26-388) H 05/30/20 04:49 Total Bilirubin 1.10 mg/dL (0.2-1.0) H 06/01/20 06:45 Direct Bilirubin 0.20 mg/dL (0-0.2) 05/24/20 02:45 Indirect Bilirubin 0.30 mg/dL (0.2-0.8) 05/24/20 02:45 AST 28 Units/L (15-37) 06/01/20 06:45 ALT 65 Units/L (12-78) 06/01/20 06:45 Alkaline Phosphatase 75 Units/L (46-116) 06/01/20 06:45 Creatine Kinase 188 Units/L (39-308) 05/29/20 13:49 CK-MB (CK-2) 4.3 ng/mL (0-4.0) H* 05/29/20 13:49 CK/CKMB % Calc 2.3 % (<4) 05/29/20 13:49 Troponin I 0.05 ng/mL (0-1.5) 05/29/20 13:49 C-Reactive Protein 7.80 mg/L (0-3.0) H 06/01/20 06:45 B-Natriuretic Peptide 85.9 pg/mL (0-79) H 05/22/20 04:30 Total Protein 6.2 g/dL (6.4-8.2) L 06/01/20 06:45 Albumin 2.7 g/dL (3.4-5.0) L 06/01/20 06:45 Globulin 3.5 g/dL (2.5-4.5) 06/01/20 06:45 Albumin/Globulin Ratio 0.8 Ratio (1.1-2.1) L 06/01/20 06:45 Urine Acetone Negative (NEGATIVE) 05/24/20 11:30 Stool for White Cells Cancelled 05/24/20 15:45 Stl C. diff Tox B Gene Negative (NEGATIVE) 05/27/20 19:05 Stl C. diff [id number]-NAP1-BI Negative (NEGATIVE) 05/27/20 19:05 Blood Type O POSITIVE 05/24/20 08:20 Antibody Screen Cancelled 05/24/20 08:20 - Plan (1) Pneumonia due to COVID-19 virus Status: Acute Plan: SUPPLEMENTAL OXYGEN, ZOSYN 3.375G IV TID, DUONEBS QID, PULMICORT NEBS BID, PEPCID IV DAILY, PROTONIX 40MG IV BID, HUMULIN R SLIDING SCALE, LANTUS 40 UNITS SC DAILY, ELIQUIS 10MG PO BID, TUSSIONEX 5ML PO Q12H PRN, LASIX 40MG IV DAILY, SOLU-MEDROL 80MG IV AT 0600 AND 1400, THE POTASSIUM AND MAGNESIUM PROTOCOLS, MORPHINE 2MG IV Q4H PRN, ATIVAN 1MG IV Q6H PRN, ZOFRAN 4MG IV Q6H PRN, AND ZINC 220MG PO DAILY (2) Acute respiratory failure due to COVID-19 Status: Acute (3) Hypoxia Status: Acute (4) Thyroid nodule Status: Acute Plan: OBTAIN THYROID ULTRASOUND (5) Diabetes Status: Chronic Qualifiers: Diabetes mellitus type: type 2 Diabetes mellitus longterm insulin use: with longterm use Diabetes mellitus complication status: without complication Qualified Code(s): E11.9 - Type 2 diabetes mellitus without complications; Z79.4 - extermination supervisor (current) use of insulin (6) CHF (congestive heart failure) Status: Chronic Qualifiers: Heart failure type: unspecified Heart failure chronicity: acute on chronic Qualified Code(s): I50.9 - Heart failure, unspecified (7) Acute renal failure Status: Chronic Qualifiers: Acute renal failure type: unspecified Qualified Code(s): N17.9 - Acute kidney failure, unspecified (8) Hypertension Status: Acute Qualifiers: Hypertension type: essential hypertension Qualified Code(s): I10 - Essential (primary) hypertension Plan: COREG 6.25MG PO BID, LISINOPRIL 10MG PO HS, AND AMLODIPINE 5MG PO HS
[2020-06-01] MEDS: SNACK - Diabetic Appropriate PO SCH (20:03)
[2020-06-01] MEDS ORDERED: ZESTRIL TAB 10 MG PO SCH (21:00)
[2020-06-01] MEDS ORDERED: NORVASC TAB 5 MG PO SCH (21:00)
[2020-06-01] MEDS: IMODIUM CAP 2 MG PO PRN (22:12)
[2020-06-02] MEDS: SOLU-Medrol 40 MG VIAL IVP SCH ×2 (05:36→14:12)
[2020-06-02] MEDS: HumuLIN R SC PRN (05:37)
[2020-06-02 05:42] LABS: ABG BASE EXCESS 8.9 mmol/L (-2.0-2.0)
[2020-06-02 05:43] LABS: ABG HCO3 33.5 mmol/L (22-26); FRACTIONATED INSPIRED OXYGEN 32
--- NOTE | 2020-06-02 05:45 | RAD ---
HISTORYReason For StudySTUDYCHEST, 1 [id number] trachea is midline. The cardiac silhouette is stable. No appreciable interval change in elevation of the right hemidiaphragm in bilateral pulmonary opacities/infiltrates.. The bony thorax is unremarkable.IMPRESSIONNo significant interval change.Electronically signed by: Mary Jane Perez (Jun 02, 2020 05:44:24)
[2020-06-02 06:14] LABS: BASOPHILS % (AUTO) 0.1 % (0.2-1.0); HEMATOCRIT 41.8 % (42.0-54.0); HEMOGLOBIN 14.2 g/dL (13.5-18.0); LYMPHOCYTES # (AUTO) 0.7 X10^3/uL (1.3-2.9); LYMPHOCYTES % (AUTO) 7.4 % (21.0-51.0); MEAN CORPUSCULAR HEMOGLOBIN 29.6 pg (27.0-34.0); MEAN CORPUSCULAR HGB CONC 34.1 g/dL (33.0-35.0); MEAN CORPUSCULAR VOLUME 86.8 fL (80.0-100.0); MEAN PLATELET VOLUME 7.7 fL (7.4-11.0); MONOCYTES # (AUTO) 0.3 x10^3/uL (0.3-0.8); MONOCYTES % (AUTO) 3.2 % (0.0-13.0); NEUTROPHILS # (AUTO) 8.7 x10^3/uL (2.2-4.8); NEUTROPHILS % (AUTO) 89.3 % (42.0-75.0); PLATELET COUNT 167 X10^3/uL (150.0-450.0); RED BLOOD COUNT 4.81 X10^6/uL (4.7-6.0); RED CELL DISTRIBUTION WIDTH 14.2 % (11.6-16.5); WHITE BLOOD COUNT 9.7 X10^3/uL (3.6-10.0)
[2020-06-02 06:29] LABS: ALANINE AMINOTRANSFERASE 56 Units/L (12-78); ALBUMIN 2.6 g/dL (3.4-5.0); ALKALINE PHOSPHATASE 78 Units/L (46-116); ASPARTATE AMINO TRANSFERASE 21 Units/L (15-37); BLOOD UREA NITROGEN 35 mg/dL (7-18); CALCIUM 8.2 mg/dL (8.5-10.1); CARBON DIOXIDE 32.7 mmol/L (21-32); CHLORIDE 105 mmol/L (98-107); COR CA(FOR HYPOALB) 9.3 mg/dL (8.5-10.1); COR NA(FOR HYPERGLY) 146 mmol/L (136-145); CREATININE 1.53 mg/dL (0.70-1.30); SODIUM 143 mmol/L (136-145); TOTAL PROTEIN 5.9 g/dL (6.4-8.2); eGFR NON BLACK RACES 51 (>60)
[2020-06-02 07:37] LABS: BAND NEUTROPHILS % 4 % (0-10); PLATELET MORPHOLOGY COMMENT NORMAL (NORMAL)
[2020-06-02] MEDS: PULMICORT NEB TX 0.5 MG NEB SCH (08:40)
[2020-06-02] MEDS: DUONEB 0.5 MG/3 MG (3 mL) NEB SCH ×2 (08:40→12:05)
[2020-06-02] MEDS: ELIQUIS PO SCH (08:41)
[2020-06-02] MEDS: COREG TAB 6.25 MG PO SCH (08:41)
[2020-06-02] MEDS: DIFLUCAN 200 MG IV PREMIX* 200 MG/100 ML BAG IV SCH (08:41)
[2020-06-02] MEDS: LANTUS SC SCH (08:42)
[2020-06-02] MEDS: LASIX IVP SCH (08:43)
[2020-06-02] MEDS: PEPCID 20 MG IV PREMIX* 20 MG/50 ML BAG IV SCH (08:43)
[2020-06-02] MEDS: PROTONIX INJ 40 MG VIAL IVP SCH (08:43)
[2020-06-02] MEDS: ZINC SULFATE PO SCH (08:43)
[2020-06-02 14:28] VITALS: BP 141/89
[2020-06-05] MEDS ORDERED: ELIQUIS PO SCH (21:00)
== END 2020-06-02 14:35 | disposition home or self-care (01) | DRG 177 ==
LOC: ER 20:48 → ICU 23:09
PROVIDERS: ADMIT Internal Medicine; ATTEND Internal Medicine